=== PATIENT | female | born 1965 | race American Indian/Alaskan Native ===

== ENCOUNTER 2017-10-15 12:24 | Emergency (ER) | payer SELFPAY ==
[2017-10-15] MEDS ORDERED: NORCO 5/325 PO ONE (14:43)
[2017-10-15] MEDS ORDERED: APRESOLINE IV ONE (14:46)
--- NOTE | 2017-10-15 14:55 | Emergency Department Report ---
HPI - General Chief Complaint: Fall Time Seen by Provider: 10/15/17 14:30 - HPI HPI: 52-year-old female presents to the emergency department with complaint of right knee pain, right shoulder pain, low back and neck pain. The patient says that she had a ground-level fall at work at the end of August and she went to a Worker's Compensation clinic the next day for knee pain at that time. She says that she has been getting some physical therapy but otherwise did not have any visit to an orthopedist. She also says that she is supposed to get set up for an MRI of the knee but that has not happened yet. More recently , she developed the shoulder, low back, and neck pain. She denies any problems with bowel or bladder, numbness or paresthesias or any neurological deficits. She has tried ibuprofen for her symptoms with transient relief. She says that it is difficult for her to an delayed secondary to the knee pain. She has a history of hypertension and does present with very elevated blood pressure despite taking her blood pressure medications morning. She is unsure what the medication is oral dose of it is. She follows with Dr. Garth Villar for primary care. ED Past Medical Hx - Past Medical History Hx Hypertension: Yes Hx Asthma: Yes Additional medical history: anemia - Surgical History Additional Surgical History: x 3 - Social History Smoking Status: Never Smoker Substance Use Type: None - Medications Home Medications: Home Medications Medication Instructions Recorded Confirmed Last Taken Type HYDROcodone/APAP 7.5-325 [[place] 1 each PO Q8HR PRN #10 tablet 05/03/16 Unknown Rx 7.5-325 mg TAB] Hydrochlorothiazide [HCTZ] 25 mg PO QDAY #30 tablet 05/03/16 Unknown Rx HYDROcodone/ACETAMINOPHEN [[place] 1 each PO Q6H PRN #10 tablet 10/15/17 Unknown Rx 5-325 Tablet] ED Review of Systems ROS: Stated complaint: FALL Other details as noted in HPI Comment: All other systems reviewed and negative Constitutional: denies: chills, fever Eyes: denies: eye pain, eye discharge, vision change ENT: denies: ear pain, throat pain Respiratory: denies: cough, shortness of breath, wheezing Cardiovascular: denies: chest pain, palpitations Gastrointestinal: denies: abdominal pain, nausea, diarrhea Genitourinary: denies: urgency, dysuria, discharge Musculoskeletal: back pain, arthralgia Skin: denies: rash, lesions Neurological: denies: headache, numbness, paresthesias Physical Exam - Physical Exam Vital Signs: Vital Signs 10/15/17 10/15/17 12:25 12:29 Temperature 98.5 F Pulse Rate 98 H Respiratory 15 Rate Blood Pressure 216/105 O2 Sat by Pulse 95 Oximetry ED Course Vital Signs 10/15/17 10/15/17 12:25 12:29 Temperature 98.5 F Pulse Rate 98 H Respiratory 15 Rate Blood Pressure 216/105 O2 Sat by Pulse 95 Oximetry Critical care attestation.: If time is entered above; I have spent that time in minutes in the direct care of this critically ill patient, excluding procedure time. ED Disposition Clinical Impression: Neck pain, Asymptomatic hypertensive urgency Knee pain Qualifiers: Chronicity: chronic Laterality: right Qualified Code(s): M25.561 - Pain in right knee; G89.29 - Other chronic pain Right shoulder pain Qualifiers: Chronicity: chronic Qualified Code(s): M25.511 - Pain in right shoulder; G89.29 - Other chronic pain Low back pain Qualifiers: Chronicity: chronic Back pain laterality: bilateral Sciatica presence: without sciatica Qualified Code(s): M54.5 - Low back pain; G89.29 - Other chronic pain Disposition: -01 TO HOME OR SELFCARE Is pt being admited?: No Condition: Stable Instructions: Hypertension (ED), Arthralgia (ED), Back Pain (ED) Additional Instructions: Please follow up with Dr. Villar regarding your elevated blood pressure. Try and stay away from foods that are high in salt and caffeinated products. Keep a blood pressure log. I am sure you will need to continue following up with your Worker's Compensation physicians. However I have given you a referral for a large local orthopedic group in case you need further evaluation. You have been prescribed a medication that is sedating and therefore should not be taken prior to driving, working, and responsible for children and in no way should be mixed with alcohol of any quantity. Prescriptions: HYDROcodone/ACETAMINOPHEN [[place] 5-325 Tablet] 1 each PO Q6H PRN #10 tablet PRN Reason: Pain Referrals: GARTH VILLAR MD [Primary Care Provider] - 3-5 Days [facility] [Provider Group] - 3-5 Days Forms: Work/School Release Form(ED) Time of Disposition: 17:29
--- NOTE | 2017-10-15 15:43 | XRay Report ---
LUMBOSACRAL SPINE, 3 VIEWS: History: Back pain Findings: The vertebral bodies, disk spaces and posterior elements are intact. No compression deformity or malalignment. Moderate multilevel degenerative disc disease and facet arthropathy is identified. All levels are affected. The SI joints are symmetric and unremarkable. Impression: Lumbar spondylosis. No evidence for acute injury to the lumbar spine.
--- NOTE | 2017-10-15 15:43 | XRay Report ---
RIGHT KNEE, 3 views: History: Right knee pain. Normal bone mineralization. A moderate joint effusion is identified on the lateral image. Mild medial compartment joint space narrowing and mild retropatellar spurring is identified. There is suggestion of an osteochondral defect on the posterior surface of the patella on the lateral view. No evidence for fracture or suspicious bone lesion. Patellar enthesophyte is noted. IMPRESSION: Degenerative changes as described. Joint effusion.
--- NOTE | 2017-10-15 15:44 | XRay Report ---
CERVICAL SPINE, 3 views: History: Neck pain. Findings: The vertebral bodies, disk spaces, posterior elements and prevertebral soft tissues are intact. The dens is intact. No acute fracture or malalignment is identified. Mild anterior spurring is present at C4-5, C5-6 and C6-7. Arytenoid cartilage calcifications are noted. Impression: Mild cervical spondylosis. No evidence for acute injury to the cervical spine.
--- NOTE | 2017-10-15 15:44 | XRay Report ---
RIGHT SHOULDER, 3 VIEWS: HISTORY: right shoulder pain. Normal bone mineralization. No acute osseous injury or joint pathology is detected. The soft tissues are unremarkable. IMPRESSION: Right shoulder within normal limits.
[2017-10-15 17:29] VITALS: BP 174/78
--- NOTE | 2017-10-16 15:43 | Vascular Lab Report ---
Right Lower Extremity Venous Duplex Study: Reason for Exam: Pain and swelling of the right lower extremity. Comments on the Right: All veins visualized are freely compressible without evidence of internal echogenicity. Flow is spontaneous and phasic throughout. No evidence of acute or chronic thrombus is seen in any of the vessels visualized. A soft tissue change in the right knee area is consistent with a Pope's cyst. Comments on the Left: A limited duplex study was done of the proximal veins of the left lower extremity. All veins visualized are freely compressible without evidence of internal echogenicity. Flow is spontaneous and phasic throughout. No evidence of acute or chronic thrombus is seen in any of the vessels visualized. Impression: No evidence of acute or chronic deep venous thrombosis in the right lower extremity. A soft tissue change in the right knee area is consistent with a Pope's cyst.
== END 2017-10-15 18:22 | disposition home or self-care (01) ==
LOC: ED 12:24
DX: M25.561 Pain in right knee (principal); M25.511 Pain in right shoulder; M54.5 Low back pain; M54.2 Cervicalgia; I16.0 Hypertensive urgency; I10 Essential (primary) hypertension; J45.909 Unspecified asthma, uncomplicated; Z86.2 Personal history of diseases of the blood and blood-forming organs and certain disorders involving the immune mechanism; W18.30XA Fall on same level, unspecified, initial encounter; Y93.89 Activity, other specified; Y99.0 Civilian activity done for income or pay; Y92.69 Other specified industrial and construction area as the place of occurrence of the external cause
CPT/HCPCS: 29505; 72040; 72100; 73030; 73562; 93971; 96374; 99284; J0360

== ENCOUNTER 2020-10-20 14:17 | Emergency (ER) | payer SELFPAY ==
[2020-10-20] MEDS ORDERED: dexAMETHasone 20 MG/5 ML VIAL IV ONE (15:06)
[2020-10-20] MEDS ORDERED: ALBUTEROL 2.5 MG/3 ML NEBU IH ONE (15:06)
[2020-10-20] MEDS ORDERED: IPRATROPIUM 0.02% NEBU 2.5 ML IH ONE (15:06)
--- NOTE | 2020-10-20 16:11 | Emergency Department Report ---
ED Asthma HPI - General Chief Complaint: Adult Asthma Stated Complaint: ASTHMA,WHEEZING Time Seen by Provider: 10/20/20 15:02 Source: patient Mode of arrival: Ambulatory Limitations: No Limitations - History of Present Illness Initial Comments: This is a 55-year-old female nontoxic, well nourished in appearance, no acute signs of distress presents to the ED with c/o of acute on chronic asthma exacerbation. Patient denies any cough. Patient denies any sick contact. Patient denies any recent travels, long car, recent hospital stays. Patient denies any calf pain or calf tenderness. Patient denies any chest pain, short of breath, fever, chills, nausea, vomiting, hemoptysis, numbness, tingling, headache or stiff neck. Past medical history includes asthma. MD Complaint: "asthma attack", wheezing -: This morning Severity: mild Context: none known Associated Symptoms: none. denies: productive cough, dry cough, fever, chest pain, hemoptysis, leg edema, syncope Treatments Prior to Arrival: inhaled bronchodilator - Related Data Current Asthma Therapy: inhaled bronchodilator Previous Rx's Medication Instructions Recorded Last Taken Type HYDROcodone/APAP 7.5-325 [[place] 1 each PO Q8HR PRN #10 tablet 05/03/16 Unknown Rx 7.5-325 mg TAB] hydroCHLOROthiazide [HCTZ] 25 mg PO QDAY #30 tablet 05/03/16 Unknown Rx HYDROcodone/ACETAMINOPHEN [[place] 1 each PO Q6H PRN #10 tablet 10/15/17 Unknown Rx 5-325 Tablet] Albuterol Mdi (or & Nicu Only) 2 puff IH QID PRN #8.5 gram 10/20/20 Unknown Rx [ProAir HFA Inhaler] Prednisone [predniSONE 10 mg 10 mg PO .TAPER #1 tab.ds.pk 10/20/20 Unknown Rx (6-Day Pack, 21 Tabs)] Allergies Allergy/AdvReac Type Severity Reaction Status Date / Time No Known Allergies Allergy Verified 05/03/16 20:56 ED Review of Systems ROS: Stated complaint: ASTHMA,WHEEZING Other details as noted in HPI Comment: All other systems reviewed and negative Constitutional: denies: chills, fever Eyes: denies: eye pain, eye discharge, vision change ENT: denies: ear pain, throat pain Respiratory: wheezing. denies: cough, shortness of breath Cardiovascular: denies: chest pain, palpitations Endocrine: no symptoms reported Gastrointestinal: denies: abdominal pain, nausea, diarrhea Genitourinary: denies: urgency, dysuria, discharge Musculoskeletal: denies: back pain, joint swelling, arthralgia Skin: denies: rash, lesions Neurological: denies: headache, weakness, paresthesias Psychiatric: denies: anxiety, depression Hematological/Lymphatic: denies: easy bleeding, easy bruising ED Past Medical Hx - Past Medical History Previous Medical History?: Yes Hx Hypertension: Yes Hx Asthma: Yes Additional medical history: anemia - Surgical History Past Surgical History?: Yes Additional Surgical History: x 3 - Social History Smoking Status: Never Smoker Substance Use Type: None - Medications Home Medications: Home Medications Medication Instructions Recorded Confirmed Last Taken Type HYDROcodone/APAP 7.5-325 [[place] 1 each PO Q8HR PRN #10 tablet 05/03/16 Unknown Rx 7.5-325 mg TAB] hydroCHLOROthiazide [HCTZ] 25 mg PO QDAY #30 tablet 05/03/16 Unknown Rx HYDROcodone/ACETAMINOPHEN [[place] 1 each PO Q6H PRN #10 tablet 10/15/17 Unknown Rx 5-325 Tablet] Albuterol Mdi (or & Nicu Only) 2 puff IH QID PRN #8.5 gram 10/20/20 Unknown Rx [ProAir HFA Inhaler] Prednisone [predniSONE 10 mg 10 mg PO .TAPER #1 tab.ds.pk 10/20/20 Unknown Rx (6-Day Pack, 21 Tabs)] ED Physical Exam - General Limitations: No Limitations General appearance: alert, in no apparent distress - Head Head exam: Present: atraumatic, normocephalic - Eye Eye exam: Present: normal appearance - Neck Neck exam: Present: normal inspection, full ROM - Respiratory Respiratory exam: Present: wheezes (Bilateral expiratory wheezing). Absent: respiratory distress, rales, rhonchi, stridor, chest wall tenderness, accessory muscle use, decreased breath sounds, prolonged expiratory - Cardiovascular Cardiovascular Exam: Present: regular rate, normal rhythm, normal heart sounds. Absent: bradycardia, tachycardia, irregular rhythm - Extremities Exam Extremities exam: Present: full ROM - Back Exam Back exam: Present: full ROM - Neurological Exam Neurological exam: Present: alert, oriented X3, normal gait - Psychiatric Psychiatric exam: Present: normal affect, normal mood - Skin Skin exam: Present: warm, dry, intact, normal color. Absent: rash ED Course Vital Signs 10/20/20 10/20/20 15:03 16:49 Temperature 98.3 F Pulse Rate 97 H Pulse Rate [ 96 H Anterior Bilateral Throughout] Respiratory 16 Rate Respiratory 18 Rate [Anterior Bilateral Throughout] Blood Pressure 193/95 O2 Sat by Pulse 95 Oximetry - Reevaluation(s) Reevaluation #1: 10/20/20 16:09 Patient is speaking in full sentences with no signs of distress noted. ED Medical Decision Making - Medical Decision Making This is a 55-year-old female that presents with asthma exacerbation. Patient is stable and was examined by me. Patient did receive breathing treatment and steroids in the ED which patient the symptoms has resolved and subsided. Posttreatment and there is no wheezing upon auscultation. Patient is discharged with albuterol and prednisone. Patient was referred to Follow-up with a primary care doctor in 3-5 days or if symptoms worsen and continue return to emergency room as soon as possible. At time of discharge, the patient does not seem toxic or ill in appearance. No acute signs of distress noted. Patient agrees to discharge treatment plan of care. No further questions noted by the patient. This chart is dictated with using [employer] Critical care attestation.: If time is entered above; I have spent that time in minutes in the direct care of this critically ill patient, excluding procedure time. ED Disposition Clinical Impression: Asthma exacerbation Qualifiers: Asthma severity: mild Asthma persistence: intermittent Qualified Code(s): J45.21 - Mild intermittent asthma with (acute) exacerbation Disposition: -01 TO HOME OR SELFCARE Is pt being admited?: No Does the pt Need Aspirin: No Condition: Stable Instructions: Asthma, Adult Additional Instructions: Follow-up with a primary care doctor in 3-5 days or if symptoms worsen and cont inue return to emergency room as soon as possible. Prescriptions: Prednisone [predniSONE 10 mg (6-Day Pack, 21 Tabs)] 10 mg PO .TAPER #1 tab.ds.pk Albuterol Mdi (or & Nicu Only) [ProAir HFA Inhaler] 2 puff IH QID PRN #8.5 gram PRN Reason: Shortness Of Breath Referrals: LUCERO WILSON MD [Primary Care Provider] - 3-5 Days PRIMARY CARE,MD [Referring] - 3-5 Days SANDRA STERLING MD [Staff Physician] - 3-5 Days Forms: Work/School Release Form(ED) Time of Disposition: 18:13
[2020-10-20 18:34] VITALS: BP 180/100
== END 2020-10-20 18:34 | disposition home or self-care (01) ==
LOC: ED 14:17
DX: J45.901 Unspecified asthma with (acute) exacerbation (principal); I10 Essential (primary) hypertension; D64.9 Anemia, unspecified; Z98.890 Other specified postprocedural states; Z79.899 Other long term (current) drug therapy
CPT/HCPCS: 94644; 96374; 99283; J1100

== ENCOUNTER 2021-01-29 10:06 | Outpatient (CLI) | payer OTHER ==
[2021-01-29 10:43] LABS: Basophils # (Auto) 0.1 K/mm3 (0.0-0.1); Eosinophils # (Auto) 0.3 K/mm3 (0.0-0.4); Eosinophils % (Auto) 3.5 % (0.0-4.3); Hematocrit 37.5 % (30.3-42.9); Hemoglobin 11.6 gm/dl (10.1-14.3); Lymphocytes # (Auto) 2.2 K/mm3 (1.2-5.4); Lymphocytes % (Auto) 26.1 % (13.4-35.0); Mean Corpuscular HGB Conc 31 % (30-34); Mean Corpuscular Volume 88 fl (79-97); Monocytes # (Auto) 0.6 K/mm3 (0.0-0.8); Monocytes % (Auto) 6.9 % (0.0-7.3); Platelet Count 303 K/mm3 (140-440); Red Blood Count 4.27 M/mm3 (3.65-5.03)
[2021-01-29 11:00] LABS: Alanine Aminotransferase 13 units/L (7-56); Albumin 4.2 g/dL (3.9-5); Blood Urea Nitrogen 10 mg/dL (7-17); Calcium 9.4 mg/dL (8.4-10.2); Chol/HDL Ratio 3.08 %; HDL Cholesterol 60 mg/dL (40-59); Hemolysis Index 0; LDL Cholesterol,Direct 131 mg/dL (50-130)
[2021-01-29 11:01] LABS: BUN/Creatinine Ratio 20
[2021-01-29 12:37] LABS: ABG HCO3 25.9 mmol/L (20.0-26.0); ABG Methemoglobin 0.3 % (0.0-1.5); ABG Oxygen Saturation 96.3 % (95.0-99.0); ABG PCO2 42.6 mm Hg; ABG PH 7.412 pH Units (7.350-7.450)
--- NOTE | 2021-01-29 12:37 | Cat Scan Report ---
CT CHEST WITH CONTRAST INDICATION / CLINICAL INFORMATION: UNSPECIFIED ASTHMA, [id number] 100ml. TECHNIQUE: Axial CT images were obtained through the chest after IV contrast. All CT scans at this location are performed using CT dose reduction for ALARA by means of automated exposure control. COMPARISON: None available. FINDINGS: Atherosclerotic changes of aorta. No large pericardial effusion. The liver is enlarged with fatty inf iltration. Visualized upper abdomen appears normal. No mediastinal or hilar adenopathy. Mild increase d interstitial prominence within the right lower lung with some interstitial nodularity. There is some mild rounded prominence in density surrounding the right lower lung pulmonary vein. On coronal images this area measures 1.5 cm. IMPRESSION: 1. Increased interstitial prominence with some interstitial nodularity and right lower lung. Small ro unded density adjacent to the right ovary vein could represent normal variant with fat however a foll ow-up CT examination for right lower lung interstitial nodularity and density in 3 months recommended . 2. Fatty infiltration of the liver. Signer Name: Chava La MD Signed: 01/29/2021 12:33 PM Workstation Name: [id number]
== END 2021-01-29 10:07 | disposition home or self-care (01) ==
LOC: CT 10:06
PROVIDERS: ATTEND Internal Medicine
DX: R91.1 Solitary pulmonary nodule (principal); J45.909 Unspecified asthma, uncomplicated; K76.0 Fatty (change of) liver, not elsewhere classified; I10 Essential (primary) hypertension; R91.8 Other nonspecific abnormal finding of lung field; J84.10 Pulmonary fibrosis, unspecified; I70.0 Atherosclerosis of aorta; Z68.42 Body mass index [BMI] 45.0-49.9, adult
CPT/HCPCS: 36415; 71260; 80053; 80061; 82164; 82785; 82803; 84436; 84443; 85025; Q9967

== ENCOUNTER 2021-12-31 13:22 | Inpatient (IN) | payer OTHER ==
[2021-12-31] MEDS ORDERED: IPRATROPIUM 0.02% NEBU 2.5 ML IH STA (14:03)
[2021-12-31] MEDS ORDERED: methylPREDNISolone Sod Succinate 125 MG/2 ML INJ IV ONE (14:03)
[2021-12-31] MEDS ORDERED: ALBUTEROL 2.5 MG/3 ML NEBU IH STA (14:03)
[2021-12-31 14:26] LABS: Basophils # (Auto) 0.1 K/mm3 (0.0-0.1); Basophils % (Auto) 0.9 % (0.0-1.8); Eosinophils # (Auto) 0.3 K/mm3 (0.0-0.4); Eosinophils % (Auto) 3.3 % (0.0-4.3); Lymphocytes # (Auto) 0.8 K/mm3 (1.2-5.4); Lymphocytes % (Auto) 8.9 % (13.4-35.0); Mean Corpuscular HGB Conc 31 % (30-34); Mean Corpuscular Volume 86 fl (79-97); Monocytes # (Auto) 0.7 K/mm3 (0.0-0.8); Platelet Count 257 K/mm3 (140-440); Red Cell Distribution Width 16.3 % (13.2-15.2)
[2021-12-31 14:33] LABS: Hematocrit 42.1 % (30.3-42.9); Hemoglobin 12.9 gm/dl (10.1-14.3)
--- NOTE | 2021-12-31 14:37 | XRay Report ---
CHEST 1 VIEW INDICATION: SOB. COMPARISON: None FINDINGS: Support devices: None. Heart: Mild cardiomegaly Lungs/Pleura: Mild central pulmonary venous congestion. No evidence for infiltrate, pleural effusion or pneumothorax. Additional findings: None. IMPRESSION: Mild cardiomegaly and central pulmonary venous congestion but no evidence for CHF. Signer Name: Chris Mcconnell Jr, MD Signed: 12/31/2021 2:32 PM Workstation Name: [id number]
[2021-12-31 14:51] LABS: Alanine Aminotransferase 15 units/L (7-56); Albumin 3.9 g/dL (3.9-5); Blood Urea Nitrogen 10 mg/dL (7-17); Calcium 9.5 mg/dL (8.4-10.2); Hemolysis Index 34
[2021-12-31 14:59] LABS: BUN/Creatinine Ratio 17
[2021-12-31 15:17] LABS: ABG Base Excess 4.9 mmol/L (-2.0-3.0); ABG HCO3 32.8 mmol/L (20.0-26.0); ABG Methemoglobin 0.5 % (0.0-1.5); ABG Oxygen Saturation 95.2 % (95.0-99.0); ABG PCO2 63.7 mm Hg; ABG PH 7.33 pH Units (7.350-7.450); ABG PO2 78.1 mm Hg (80.0-90.0)
--- NOTE | 2021-12-31 17:46 | Emergency Department Report ---
ED General Adult HPI - General Chief complaint: Dyspnea/Respdistress Stated complaint: WHEEZING Time Seen by Provider: 12/31/21 13:50 Source: patient Mode of arrival: Ambulatory Limitations: No Limitations - History of Present Illness Initial comments: Patient presents with complaints of SOB @ rest and on exertion. Denies PND, orthopnea, chest pain, palpitations, diaphoresis, leg swelling, pain in his/her calves, recent travel, immobilization, surgery, hospitalization, sex HRT use. POx in 70s on RA. - Related Data Previous Rx's Medication Instructions Recorded Last Taken Type HYDROcodone/APAP 7.5-325 [[place] 1 each PO Q8HR PRN #10 tablet 05/03/16 Unknown Rx 7.5-325 mg TAB] hydroCHLOROthiazide [HCTZ] 25 mg PO QDAY #30 tablet 05/03/16 Unknown Rx HYDROcodone/ACETAMINOPHEN [[place] 1 each PO Q6H PRN #10 tablet 10/15/17 Unknown Rx 5-325 Tablet] Albuterol Mdi (or & Nicu Only) 2 puff IH QID PRN #8.5 gram 10/20/20 Unknown Rx [ProAir HFA Inhaler] Prednisone [predniSONE 10 mg 10 mg PO .TAPER #1 tab.ds.pk 10/20/20 Unknown Rx (6-Day Pack, 21 Tabs)] Allergies Allergy/AdvReac Type Severity Reaction Status Date / Time No Known Allergies Allergy Verified 05/03/16 20:56 ED Review of Systems ROS: Stated complaint: WHEEZING Other details as noted in HPI Comment: All other systems reviewed and negative Constitutional: denies: chills, fever ED Past Medical Hx - Past Medical History Hx Hypertension: Yes Hx Asthma: Yes Additional medical history: anemia - Surgical History Additional Surgical History: x 3 - Social History Smoking Status: Never Smoker Substance Use Type: None - Medications Home Medications: Home Medications Medication Instructions Recorded Confirmed Last Taken Type HYDROcodone/APAP 7.5-325 [[place] 1 each PO Q8HR PRN #10 tablet 05/03/16 Unknown Rx 7.5-325 mg TAB] hydroCHLOROthiazide [HCTZ] 25 mg PO QDAY #30 tablet 05/03/16 Unknown Rx HYDROcodone/ACETAMINOPHEN [[place] 1 each PO Q6H PRN #10 tablet 10/15/17 Unknown Rx 5-325 Tablet] Albuterol Mdi (or & [place]u Only) 2 puff IH QID PRN #8.5 gram 10/20/20 Unknown Rx [ProAir HFA Inhaler] Prednisone [predniSONE 10 mg 10 mg PO .TAPER #1 tab.ds.pk 10/20/20 Unknown Rx (6-Day Pack, 21 Tabs)] ED Physical Exam - General Limitations: No Limitations General appearance: alert, other (in moderate respiratory distress) - Head Head exam: Present: atraumatic, normocephalic - Eye Eye exam: Present: PERRL, EOMI - ENT ENT exam: Present: mucous membranes moist, other (airway patent) - Neck Neck exam: Present: other (supple; no JVD) - Respiratory Respiratory exam: Present: other (poor to femi air entry, prolonged expiratory phase, diffuse inspiratory and expiratory wheezes, no use of MILLA) - Cardiovascular Cardiovascular Exam: Present: regular rate. Absent: rubs, gallop - GI/Abdominal GI/Abdominal exam: Present: soft, normal bowel sounds. Absent: distended, tenderness - Extremities Exam Extremities exam: Present: other (trace pretibial edema, R=L; non tender calves; neg Lenin's sign bilaterally) - Back Exam Back exam: Present: full ROM. Absent: tenderness - Neurological Exam Neurological exam: Present: alert, oriented X3, CN II-XII intact - Skin Skin exam: Present: warm, normal color ED Course Vital Signs 12/31/21 12/31/21 12/31/21 13:29 13:42 15:27 Temperature 98.7 F Pulse Rate 116 H 119 H Pulse Rate [ 118 H Bilateral] Respiratory 24 Rate Respiratory 20 Rate [Bilateral ] Blood Pressure 198/106 [Right] O2 Sat by Pulse 85 92 Oximetry ED Medical Decision Making - Lab Data Result diagrams: 12/31/21 14:14 12/31/21 14:14 Laboratory Tests 12/31/21 12/31/21 12/31/21 14:14 14:14 14:39 WBC 9.1 RBC 4.90 Hgb 12.9 Hct 42.1 MCV 86 MCH 26 L MCHC 31 RDW 16.3 H Plt Count 257 Lymph % (Auto) 8.9 L [place] % (Auto) 8.0 H Eos % (Auto) 3.3 Baso % (Auto) 0.9 Lymph # (Auto) 0.8 L [place] # (Auto) 0.7 Eos # (Auto) 0.3 Baso # (Auto) 0.1 Seg Neutrophils % 78.9 H Seg Neutrophils # 7.2 ABG pH 7.330 L ABG pCO2 63.7 ABG pO2 78.1 L ABG HCO3 32.8 H ABG O2 Saturation 95.2 ABG O2 Content 18.1 ABG Base Excess 4.9 H ABG Hemoglobin 13.9 ABG Carboxyhemoglobin 1.8 ABG Methemoglobin 0.5 Oxyhemoglobin 93.0 L FiO2 45 Sodium 139 Potassium 4.4 Chloride 96.9 L Carbon Dioxide 30 Anion Gap 17 BUN 10 Creatinine 0.6 Estimated GFR > 60 BUN/Creatinine Ratio 17 Glucose 114 H Calcium 9.5 Total Bilirubin 0.80 AST 14 ALT 15 Alkaline Phosphatase 135 H Troponin T < 0.010 NT-Pro-B Natriuret Pep 79.88 Total Protein 7.7 Albumin 3.9 Albumin/Globulin Ratio 1.0 CXR: pulmonary vascular congestion; clear lung lassiter EKG: HR 114, SR, nml NV, narrow QRS, LVH by R in I, no siginificant ST changes in contiguous leads - Medical Decision Making Diff dz: Likely 2/2 asthma exacerbation superimposed on hypertensive urgency with pulmonary vascular congestion. Pneumonia, pneumothorax ruled out. ACS, PE less likely. received solumedrol 125 mg IV x 1, albuterol 10 mg neb x 1, ipratropium 1 mg neb x 1, hydralazine 10 mg IV x 1, O2 via NC @ 4L/min. Critical care attestation.: If time is entered above; I have spent that time in minutes in the direct care of this critically ill patient, excluding procedure time. ED Disposition Clinical Impression: Asthma exacerbation, Acute respiratory failure with hypoxia Disposition: ADMITTED INPATIENT Is pt being admited?: Yes Does the pt Need Aspirin: No Condition: Stable Time of Disposition: 17:30 (Patient admitted to Dr. Jackson. Sign out was given by me to the admitting physician. )
[2021-12-31] MEDS ORDERED: hydrALAZINE 20 MG/1 ML INJ IV ONE (17:47)
--- NOTE | 2021-12-31 22:18 | History and Physical Report ---
History of Present Illness Date of examination: 12/31/21 Date of admission: 12/31/2021 Chief complaint: Severe shortness of breath and wheezing for 1 day History of present illness: 56-year-old female with a history of asthma and hyper tension comes in for severe wheezing shortness of breath for the last 24 hours. Patient uses her home nebulizer treatments but with no relief. In the emergency room patient was saturating around 86%. With 3 to 5 L of nasal cannula oxygen patient's saturations improved to 95%. Patient received nebulizer treatments. No fever or chills. During my examination patient states that she has some relief and wanted to go home. Patient's wheezing was less compared to the time of admission. When the oxygen was removed she desaturated again to 86%. Patient had to be convinced to stay in the hospital for more breathing treatments steroids and antibiotics. Son was at the bedside. - Past Medical History --Hypertension: Yes --Asthma: Yes Additional medical history: anemia - Surgical History Additional Surgical History: x 3 - Social History Smoking Status: Never Smoker Substance Use Type: None - Medications Home Medications: Home Medications Medication Instructions Recorded Confirmed Last Taken Type HYDROcodone/APAP 7.5-325 [[place] 1 each PO Q8HR PRN #10 tablet 05/03/16 Unknown Rx 7.5-325 mg TAB] hydroCHLOROthiazide [HCTZ] 25 mg PO QDAY #30 tablet 05/03/16 Unknown Rx HYDROcodone/ACETAMINOPHEN [[place] 1 each PO Q6H PRN #10 tablet 10/15/17 Unknown Rx 5-325 Tablet] Albuterol Mdi (or & Nicu Only) 2 puff IH QID PRN #8.5 gram 10/20/20 Unknown Rx [ProAir HFA Inhaler] Prednisone [predniSONE 10 mg 10 mg PO .TAPER #1 tab.ds.pk 10/20/20 Unknown Rx (6-Day Pack, 21 Tabs)] Review of Systems ROS: Constitutional no weight loss or weight gain no fever or chills HEENT no sore throat no post nasal drip no diplopia Neck no neck stiffness no lymph gland enlargement Chest and lungs severe wheezing and shortness of breath CVS no chest pain no diaphoresis no palpitations GI no nausea no vomiting no diarrhea Genitourinary system no dysuria no flank pain Musculoskeletal system no muscle pains no joint pains [employer] no syncope no seizures Skin no rash no itching Psychiatric no depression no homicidal or suicidal tendencies Hematologic no lymphedema or bruising Endocrine no polydipsia no polyuria no cold intolerance no heat intolerance Medications and Allergies Allergies Allergy/AdvReac Type Severity Reaction Status Date / Time No Known Allergies Allergy Verified 05/03/16 20:56 Home Medications Medication Instructions Recorded Confirmed Last Taken Type HYDROcodone/APAP 7.5-325 [[place] 1 each PO Q8HR PRN #10 tablet 05/03/16 Unknown Rx 7.5-325 mg TAB] hydroCHLOROthiazide [HCTZ] 25 mg PO QDAY #30 tablet 05/03/16 Unknown Rx HYDROcodone/ACETAMINOPHEN [[place] 1 each PO Q6H PRN #10 tablet 10/15/17 Unknown Rx 5-325 Tablet] Albuterol Mdi (or & Nicu Only) 2 puff IH QID PRN #8.5 gram 10/20/20 Unknown Rx [ProAir HFA Inhaler] Prednisone [predniSONE 10 mg 10 mg PO .TAPER #1 tab.ds.pk 10/20/20 Unknown Rx (6-Day Pack, 21 Tabs)] Exam - Constitutional Vitals: Temp Pulse Resp BP Pulse Ox 98.7 F 104 H 20 190/93 92 12/31/21 13:29 12/31/21 20:41 12/31/21 20:41 12/31/21 20:41 12/31/21 20:41 General appearance: Present: severe distress, well-nourished - EENT Eyes: Present: PERRL ENT: hearing intact, clear oral mucosa - Neck Neck: Present: supple, normal ROM - Respiratory Respiratory effort: normal Respiratory: left: diminished, rhonchi, wheezing, bilateral: CTA - Cardiovascular Heart rate: 78 Rhythm: regular Heart Sounds: Present: S1 & S2. Absent: rub, click - Extremities Extremities: pulses symmetrical, No edema Peripheral Pulses: within normal limits - Abdominal General gastrointestinal: Present: soft, non-tender, non-distended, normal bowel sounds Female genitourinary: Present: normal - Integumentary Integumentary: Present: clear, warm, dry - Musculoskeletal Musculoskeletal: gait normal, strength equal bilaterally - Psychiatric Psychiatric: appropriate mood/affect, intact judgment & insight - Neurologic Neurologic: CNII-XII intact, moves all extremities HEART Score - HEART Score Troponin: Troponin T < 0.010 ng/mL (0.00-0.029) 12/31/21 14:14 Results - Labs CBC & Chem 7: 01/01/22 05:35 01/01/22 05:35 Labs: Laboratory Last Values WBC 9.1 K/mm3 (4.5-11.0) 12/31/21 14:14 RBC 4.90 M/mm3 (3.65-5.03) 12/31/21 14:14 Hgb 12.9 gm/dl (10.1-14.3) 12/31/21 14:14 Hct 42.1 % (30.3-42.9) 12/31/21 14:14 MCV 86 fl (79-97) 12/31/21 14:14 MCH 26 pg (28-32) L 12/31/21 14:14 MCHC 31 % (30-34) 12/31/21 14:14 RDW 16.3 % (13.2-15.2) H 12/31/21 14:14 Plt Count 257 K/mm3 (140-440) 12/31/21 14:14 Lymph % (Auto) 8.9 % (13.4-35.0) L 12/31/21 14:14 [place] % (Auto) 8.0 % (0.0-7.3) H 12/31/21 14:14 Eos % (Auto) 3.3 % (0.0-4.3) 12/31/21 14:14 Baso % (Auto) 0.9 % (0.0-1.8) 12/31/21 14:14 Lymph # (Auto) 0.8 K/mm3 (1.2-5.4) L 12/31/21 14:14 [place] # (Auto) 0.7 K/mm3 (0.0-0.8) 12/31/21 14:14 Eos # (Auto) 0.3 K/mm3 (0.0-0.4) 12/31/21 14:14 Baso # (Auto) 0.1 K/mm3 (0.0-0.1) 12/31/21 14:14 Seg Neutrophils % 78.9 % (40.0-70.0) H 12/31/21 14:14 Seg Neutrophils # 7.2 K/mm3 (1.8-7.7) 12/31/21 14:14 ABG pH 7.330 pH Units (7.350-7.450) L 12/31/21 14:39 ABG pCO2 63.7 mm Hg 12/31/21 14:39 ABG pO2 78.1 mm Hg (80.0-90.0) L 12/31/21 14:39 ABG HCO3 32.8 mmol/L (20.0-26.0) H 12/31/21 14:39 ABG O2 Saturation 95.2 % (95.0-99.0) 12/31/21 14:39 ABG O2 Content 18.1 (0.0-44) 12/31/21 14:39 ABG Base Excess 4.9 mmol/L (-2.0-3.0) H 12/31/21 14:39 ABG Hemoglobin 13.9 gm/dl (12.0-16.0) 12/31/21 14:39 ABG Carboxyhemoglobin 1.8 % (0.0-5.0) 12/31/21 14:39 ABG Methemoglobin 0.5 % (0.0-1.5) 12/31/21 14:39 Oxyhemoglobin 93.0 % (95.0-99.0) L 12/31/21 14:39 FiO2 45 % 12/31/21 14:39 Sodium 139 mmol/L (137-145) 12/31/21 14:14 Potassium 4.4 mmol/L (3.6-5.0) 12/31/21 14:14 Chloride 96.9 mmol/L (98-107) L 12/31/21 14:14 Carbon Dioxide 30 mmol/L (22-30) 12/31/21 14:14 Anion Gap 17 mmol/L 12/31/21 14:14 BUN 10 mg/dL (7-17) 12/31/21 14:14 Creatinine 0.6 mg/dL (0.6-1.2) 12/31/21 14:14 Estimated GFR > 60 ml/min 12/31/21 14:14 BUN/Creatinine Ratio 17 % 12/31/21 14:14 Glucose 114 mg/dL (65-100) H 12/31/21 14:14 Calcium 9.5 mg/dL (8.4-10.2) 12/31/21 14:14 Total Bilirubin 0.80 mg/dL (0.1-1.2) 12/31/21 14:14 AST 14 units/L (5-40) 12/31/21 14:14 ALT 15 units/L (7-56) 12/31/21 14:14 Alkaline Phosphatase 135 units/L (35-129) H 12/31/21 14:14 Troponin T < 0.010 ng/mL (0.00-0.029) 12/31/21 14:14 NT-Pro-B Natriuret Pep 79.88 pg/mL (0-900) 12/31/21 14:14 Total Protein 7.7 g/dL (6.3-8.2) 12/31/21 14:14 Albumin 3.9 g/dL (3.9-5) 12/31/21 14:14 Albumin/Globulin Ratio 1.0 % 12/31/21 14:14 - Imaging and Cardiology Chest x-ray: report reviewed (No acute. No acute findings) Assessment and Plan Advance Directives: Yes (Full code) VTE prophylaxis?: Chemical Plan of care discussed with patient/family: Yes - Patient Problems (1) Acute respiratory failure with hypoxia Current Visit: Yes Status: Acute Plan to address problem: Patient was desaturating to 86% on room air consistently Patient initiated on 5 L nasal cannula oxygen, IV steroids, IV Levaquin and duo nebs [id number] and as needed. Singulair 10 mg p.o. daily was added. (2) Asthma exacerbation Current Visit: Yes Status: Acute Qualifiers: Asthma severity: severe Plan to address problem: Patient initiated on IV steroids, IV Levaquin and nebulizer treatments Patient has nebulizer machine at home but not on home oxygen. Singulair was added to prevent further attacks. (3) Hypertension Current Visit: Yes Status: Chronic Qualifiers: Hypertension type: primary hypertension Qualified Code(s): I10 - Essential (primary) hypertension Plan to address problem: Continue antihypertensives and adjust medications. (4) DVT prophylaxis Current Visit: Yes Status: Acute Plan to address problem: Anticoagulation GI prophylaxis. (5) Advance care planning Current Visit: Yes Status: Acute Plan to address problem: Disease education conducted, care plan discussed, diagnosis discussed, prognosis discussed. Patient is full code. Patient acknowledges understanding and agreement with care plan. +30 minutes.
[2021-12-31] MEDS ORDERED: ALBUTEROL 8.5 GM MDI INHALATION IH PRN (22:19)
[2021-12-31] MEDS ORDERED: HYDROmorphone 0.5 MG/0.5 ML INJ IV PRN (22:19)
[2021-12-31] MEDS ORDERED: IPRATROPIUM/ALBUTEROL SULFATE 3 ML AMPUL.NEB IH PRN (22:22)
[2021-12-31] MEDS ORDERED: METOPROLOL TARTRATE 5 MG/5 ML INJ IV ONE (22:29)
[2021-12-31] MEDS ORDERED: SODIUM CHLORIDE 0.9% 1000 ML 1,000 ML IV SCH (23:00)
[2021-12-31] MEDS ORDERED: ACETAMINOPHEN 325 MG TAB PO PRN (23:30)
[2021-12-31] MEDS ORDERED: oxyCODONE /ACETAMINOPHEN 5-325MG TAB PO PRN (23:30)
[2021-12-31] MEDS ORDERED: METOCLOPRAMIDE 10 MG/2 ML INJ IV PRN (23:30)
[2021-12-31] MEDS ORDERED: ONDANSETRON 4 MG/2 ML INJ IV PRN (23:30)
[2022-01-01] MEDS: methylPREDNISolone Sod Succinate 125 MG/2 ML INJ IV SCH ×4 (00:07→21:28)
[2022-01-01] MEDS ORDERED: ALBUTEROL 2.5 MG/3 ML NEBU IH PRN (02:08)
[2022-01-01] MEDS ORDERED: hydrALAZINE 20 MG/1 ML INJ IV PRN ×2 (02:31→02:44)
[2022-01-01 06:10] LABS: Hematocrit 42.5 % (30.3-42.9); Hemoglobin 13.3 gm/dl (10.1-14.3); Mean Corpuscular HGB Conc 31 % (30-34); Mean Corpuscular Volume 85 fl (79-97); Platelet Count 293 K/mm3 (140-440); Red Blood Count 4.98 M/mm3 (3.65-5.03); Red Cell Distribution Width 16.4 % (13.2-15.2)
[2022-01-01 06:32] LABS: Alanine Aminotransferase 15 units/L (7-56); Albumin 4.3 g/dL (3.9-5); Blood Urea Nitrogen 12 mg/dL (7-17); Calcium 9.8 mg/dL (8.4-10.2); Hemolysis Index 20
[2022-01-01 06:38] LABS: BUN/Creatinine Ratio 20
[2022-01-01 06:57] LABS: Basophils % (Manual) 0 % (0.0-1.8); Eosinophils % (Manual) 0 % (0.0-4.3); Monocytes % (Manual) 0 % (0.0-7.3); Total Cells Counted 100
[2022-01-01 06:58] LABS: Platelet Estimate Consistent w Auto; RBC Morphology Normal
[2022-01-01] MEDS ORDERED: IPRATROPIUM/ALBUTEROL SULFATE 3 ML AMPUL.NEB IH SCH (08:00)
[2022-01-01] MEDS: HEPARIN 5,000 UNIT/1 ML VIAL SUB-Q SCH ×2 (10:05→21:28)
[2022-01-01] MEDS: FAMOTIDINE 20 MG TAB PO SCH ×2 (10:06→21:27)
--- NOTE | 2022-01-01 10:32 | Consultation ---
History of Present Illness Consult date: 01/01/22 Requesting physician: LILIAN PALM Reason for consult: asthma (Acute Exacerbation) History of present illness: PULMONARY/CCM CONSULT NOTE (Full dictation # [id number]) Please see dictated notes for full details Medications and Allergies Allergies Allergy/AdvReac Type Severity Reaction Status Date / Time No Known Allergies Allergy Verified 05/03/16 20:56 Home Medications Medication Instructions Recorded Confirmed Last Taken Type HYDROcodone/APAP 7.5-325 [[place] 1 each PO Q8HR PRN #10 tablet 05/03/16 Unknown Rx 7.5-325 mg TAB] hydroCHLOROthiazide [HCTZ] 25 mg PO QDAY #30 tablet 05/03/16 Unknown Rx HYDROcodone/ACETAMINOPHEN [[place] 1 each PO Q6H PRN #10 tablet 10/15/17 Unknown Rx 5-325 Tablet] Prednisone [predniSONE 10 mg 10 mg PO .TAPER #1 tab.ds.pk 10/20/20 Unknown Rx (6-Day Pack, 21 Tabs)] RX: Albuterol Mdi (or & Nicu Only) 2 puff IH QID PRN #8.5 gram 10/20/20 Unknown Rx [ProAir HFA Inhaler] Active Meds: Active Medications Acetaminophen (Acetaminophen 325 Mg Tab) 650 mg PO Q4H PRN PRN Reason: Pain MILD(1-3)/Fever >100.5/WEBB Albuterol (Albuterol 2.5 Mg/3 Ml Nebu) 2.5 mg IH Q4HRT PRN PRN Reason: Shortness Of Breath Last Admin: 01/01/22 06:01 Dose: 2.5 mg Albuterol/Ipratropium (Ipratropium/Albuterol Sulfate 3 Ml Ampul.Neb) 1 ampul IH QIDRT MARIAH Last Admin: 01/01/22 08:28 Dose: 1 ampul Famotidine (Famotidine 20 Mg Tab) 20 mg PO BID [facility] Last Admin: 01/01/22 10:06 Dose: 20 mg Heparin Sodium (Porcine) (Heparin 5,000 Unit/1 Ml Vial) 5,000 unit SUB-Q Q12HR [facility] Last Admin: 01/01/22 10:05 Dose: 5,000 unit Hydralazine HCl (Hydralazine 20 Mg/1 Ml Inj) 10 mg IV Q6H PRN PRN Reason: Blood Pressure Last Admin: 01/01/22 02:57 Dose: 10 mg Hydromorphone HCl (Hydromorphone 0.5 Mg/0.5 Ml Inj) 0.5 mg IV Q3H PRN PRN Reason: Pain , Severe (7-10) Last Admin: 01/01/22 00:07 Dose: 0.5 mg Sodium Chloride (Nacl 0.9% 1000 Ml) 1,000 mls @ 75 mls/hr IV DIRECT MARIAH Last Admin: 01/01/22 05:26 Dose: 75 mls/hr Levofloxacin/Dextrose (Levaquin 750mg/150ml) 750 mg in 150 mls @ 100 mls/hr IV Q24HR MARIAH; Protocol Stop: 01/05/22 11:29 Last Admin: 01/01/22 10:05 Dose: 100 mls/hr Methylprednisolone Sodium Succinate (Methylprednisolone Sod Succinate 125 Mg/2 Ml Inj) 60 mg IV Q8HR MARIAH Last Admin: 01/01/22 05:25 Dose: 60 mg Metoclopramide HCl (Metoclopramide 10 Mg/2 Ml Inj) 10 mg IV Q6H PRN PRN Reason: Nausea And Vomiting Montelukast Sodium (Montelukast 10 Mg Tab) 10 mg PO QHS MARIAH Ondansetron HCl (Ondansetron 4 Mg/2 Ml Inj) 4 mg IV Q8H PRN PRN Reason: Nausea And Vomiting Last Admin: 01/01/22 00:08 Dose: 4 mg Oxycodone/Acetaminophen (Oxycodone /Acetaminophen 5-325mg Tab) 1 tab PO Q6H PRN PRN Reason: Pain, Moderate (4-6) Sodium Chloride (Sodium Chloride 0.9% 10 Ml Flush Syringe) 10 ml IV BID MARIAH Last Admin: 01/01/22 10:06 Dose: 10 ml Sodium Chloride (Sodium Chloride 0.9% 10 Ml Flush Syringe) 10 ml IV PRN PRN PRN Reason: LINE FLUSH Last Admin: 01/01/22 05:26 Dose: 10 ml Physical Examination Vital signs: Vital Signs Temp Pulse Resp BP Pulse Ox 98.7 F 116 H 24 198/106 85 12/31/21 13:29 12/31/21 13:29 12/31/21 13:29 12/31/21 13:29 12/31/21 13:29 Results - Laboratory Findings CBC and BMP: 01/01/22 05:35 01/01/22 05:35 ABG ABG pH 7.330 pH Units (7.350-7.450) L 12/31/21 14:39 ABG pCO2 63.7 mm Hg 12/31/21 14:39 ABG pO2 78.1 mm Hg (80.0-90.0) L 12/31/21 14:39 ABG O2 Saturation 95.2 % (95.0-99.0) 12/31/21 14:39 Abnormal lab findings: Abnormal Labs 12/31/21 12/31/21 12/31/21 14:14 14:14 14:39 MCH 26 L RDW 16.3 H Lymph % (Auto) 8.9 L [place] % (Auto) 8.0 H Lymph # (Auto) 0.8 L Seg Neutrophils % 78.9 H Seg Neuts % (Manual) Lymphocytes % (Manual) Seg Neutrophils # Man Lymphocytes # (Manual) ABG pH 7.330 L ABG pO2 78.1 L ABG HCO3 32.8 H ABG Base Excess 4.9 H Oxyhemoglobin 93.0 L Chloride 96.9 L Carbon Dioxide Glucose 114 H Alkaline Phosphatase 135 H Total Protein 01/01/22 01/01/22 05:35 05:35 MCH 27 L RDW 16.4 H Lymph % (Auto) [place] % (Auto) Lymph # (Auto) Seg Neutrophils % Seg Neuts % (Manual) 99.0 H Lymphocytes % (Manual) 1.0 L Seg Neutrophils # Man 9.5 H Lymphocytes # (Manual) 0.1 L ABG pH ABG pO2 ABG HCO3 ABG Base Excess Oxyhemoglobin Chloride 95.4 L Carbon Dioxide 32 H Glucose 167 H Alkaline Phosphatase 145 H Total Protein 9.1 H
--- NOTE | 2022-01-01 11:09 | Progress Note ---
Assessment and Plan Assessment and plan: History of present illness: 56-year-old female with a history of asthma and hyper tension comes in for s evere wheezing shortness of breath for the last 24 hours. Patient uses her home nebulizer treatments but with no relief. In the emergency room patient was saturating around 86%. With 3 to 5 L of nasal cannula oxygen patient's saturations improved to 95%. Patient received nebulizer treatments. No fever or chills. During my examination patient states that she has some relief and wanted to go home. Patient's wheezing was less compared to the time of admission. When the oxygen was removed she desaturated again to 86%. Patient had to be convinced to stay in the hospital for more breathing treatments steroids and antibiotics. Son was at the bedside. Hospital Course: 01/01: Pulmonary consultation placed, discussed case with Dr. Lloyd. D- dimer/LE doppler US ordered to R/o DVT/PE. Continue therapy outlined below for asthma exacerbation. anticipate d/c in next 24-48 hrs if patient demonstrates improvement. Assessment and Plan: #Acute hypoxic respiratory failure -Desaturated to 86% on room air in the emergency department. Patient was placed on nasal cannula currently at 3 L/min -D-dimer and Doppler ultrasound of lower extremity pending Chest x-ray: Mild cardiomegaly and central pulmonary venous congestion but no evidence of CHF DuoNeb, budesonide, Brovana Montelukast Solu-Medrol IV -Currently on Levaquin, doubt infectious etiology. can likely d/c tomorrow. Pulmonary consultation #Asthma exacerbation -Management as above #Essential hypertension -As needed hydralazine #Hyperglycemia -Sliding scale insulin Hemoglobin A1c ordered Worsened by steroid likely #Morbid Obesity + 15 min preventative health counseling on for balanced diet /regular exercise. #Advance care planning Disease education conducted, care plan discussed, diagnoses discussed, prognosis discussed, patient is full code, patient acknowledges understanding and agree with care plan, discussed with mother Evi Oglesby about patient clinical course and answered all questionst to satisfaction. +30 minutes. History Interval history: Patient seen and examined during bedside encounter. Patient sitting upright in chair currently on nasal cannula 3 L/min. Audible wheezes apparent patient in mild respiratory distress. She follows outpatient with Dr. Valiente for her pulmonary needs. She states that she saw him approximately 2 weeks ago. When asked about what inhaler therapy she utilizes patient could not recall other than stating that she is on "nebulizer therapy and a couple of inhalers" Hospitalist Physical - Physical exam Narrative exam: Physical Exam: VITAL SIGNS: Reviewed. GENERAL: The patient appears normally developed, Vital signs as documented. Mild respiratory distress. Currently on 3 L nasal cannula HEAD: No signs of head trauma. EYES: Pupils are equal. Extraocular motions intact. EARS: Hearing grossly intact. MOUTH: Oropharynx is normal. NECK: No adenopathy, no JVD. CHEST: Bilateral wheezes throughout lung lassiter. CARDIAC: Regular rate and rhythm. S1 and S2, without murmurs, gallops, or rubs. VASCULAR: No Edema. Peripheral pulses normal and equal in all extremities. ABDOMEN: Soft, non tender and non distended. No rebound or guarding, and no masses palpated. Bowel Sounds normal. MUSCULOSKELETAL: Good range of motion of all major joints. Extremities without clubbing, cyanosis or edema. NEUROLOGIC EXAM: Alert and oriented x 4. no focal sensory or strength deficits. PSYCHIATRIC: Mood normal. SKIN: detail exam as documented in skin assessment - Constitutional Vitals: Temp Pulse Resp BP Pulse Ox 97.7 F 128 H 22 195/90 88 01/01/22 01:57 01/01/22 08:29 01/01/22 08:29 01/01/22 02:57 01/01/22 08:31 General appearance: Present: severe distress, well-nourished HEART Score - HEART Score Troponin: Troponin T < 0.010 ng/mL (0.00-0.029) 12/31/21 14:14 Results - Labs CBC & Chem 7: 01/01/22 05:35 01/01/22 05:35 Labs: Laboratory Last Values WBC 9.6 K/mm3 (4.5-11.0) 01/01/22 05:35 RBC 4.98 M/mm3 (3.65-5.03) 01/01/22 05:35 Hgb 13.3 gm/dl (10.1-14.3) 01/01/22 05:35 Hct 42.5 % (30.3-42.9) 01/01/22 05:35 MCV 85 fl (79-97) 01/01/22 05:35 MCH 27 pg (28-32) L 01/01/22 05:35 MCHC 31 % (30-34) 01/01/22 05:35 RDW 16.4 % (13.2-15.2) H 01/01/22 05:35 Plt Count 293 K/mm3 (140-440) 01/01/22 05:35 Lymph % (Auto) 8.9 % (13.4-35.0) L 12/31/21 14:14 Maverick % (Auto) 8.0 % (0.0-7.3) H 12/31/21 14:14 Eos % (Auto) 3.3 % (0.0-4.3) 12/31/21 14:14 Baso % (Auto) 0.9 % (0.0-1.8) 12/31/21 14:14 Lymph # (Auto) 0.8 K/mm3 (1.2-5.4) L 12/31/21 14:14 Maverick # (Auto) 0.7 K/mm3 (0.0-0.8) 12/31/21 14:14 Eos # (Auto) 0.3 K/mm3 (0.0-0.4) 12/31/21 14:14 Baso # (Auto) 0.1 K/mm3 (0.0-0.1) 12/31/21 14:14 Add Manual Diff Complete 01/01/22 05:35 Total Counted 100 01/01/22 05:35 Seg Neutrophils % [employer] 01/01/22 05:35 Seg Neuts % (Manual) 99.0 % (40.0-70.0) H 01/01/22 05:35 Band Neutrophils % 0 % 01/01/22 05:35 Lymphocytes % (Manual) 1.0 % (13.4-35.0) L 01/01/22 05:35 Reactive Lymphs % (Man) 0 % 01/01/22 05:35 Monocytes % (Manual) 0 % (0.0-7.3) 01/01/22 05:35 Eosinophils % (Manual) 0 % (0.0-4.3) 01/01/22 05:35 Basophils % (Manual) 0 % (0.0-1.8) 01/01/22 05:35 Metamyelocytes % 0 % 01/01/22 05:35 Myelocytes % 0 % 01/01/22 05:35 Promyelocytes % 0 % 01/01/22 05:35 Blast Cells % 0 % 01/01/22 05:35 Nucleated RBC % Not Reportable 01/01/22 05:35 Seg Neutrophils # 7.2 K/mm3 (1.8-7.7) 12/31/21 14:14 Seg Neutrophils # Man 9.5 K/mm3 (1.8-7.7) H 01/01/22 05:35 Band Neutrophils # 0.0 K/mm3 01/01/22 05:35 Lymphocytes # (Manual) 0.1 K/mm3 (1.2-5.4) L 01/01/22 05:35 Abs React Lymphs (Man) 0.0 K/mm3 01/01/22 05:35 Monocytes # (Manual) 0.0 K/mm3 (0.0-0.8) 01/01/22 05:35 Eosinophils # (Manual) 0.0 K/mm3 (0.0-0.4) 01/01/22 05:35 Basophils # (Manual) 0.0 K/mm3 (0.0-0.1) 01/01/22 05:35 Metamyelocytes # 0.0 K/mm3 01/01/22 05:35 Myelocytes # 0.0 K/mm3 01/01/22 05:35 Promyelocytes # 0.0 K/mm3 01/01/22 05:35 Blast Cells # 0.0 K/mm3 01/01/22 05:35 WBC Morphology Not Reportable 01/01/22 05:35 Hypersegmented Neuts Not Reportable 01/01/22 05:35 Hyposegmented Neuts Not Reportable 01/01/22 05:35 Hypogranular Neuts Not Reportable 01/01/22 05:35 Smudge Cells Not Reportable 01/01/22 05:35 Toxic Granulation Not Reportable 01/01/22 05:35 Toxic Vacuolation Not Reportable 01/01/22 05:35 Dohle Bodies Not Reportable 01/01/22 05:35 Pelger-Huet Anomaly Not Reportable 01/01/22 05:35 Gianfranco Rods Not Reportable 01/01/22 05:35 Platelet Estimate Consistent w auto 01/01/22 05:35 Clumped Platelets Not Reportable 01/01/22 05:35 Plt Clumps, EDTA Not Reportable 01/01/22 05:35 Large Platelets Not Reportable 01/01/22 05:35 Giant Platelets Not Reportable 01/01/22 05:35 Platelet Satelliting Not Reportable 01/01/22 05:35 Plt Morphology Comment Not Reportable 01/01/22 05:35 RBC Morphology Normal 01/01/22 05:35 Dimorphic RBCs Not Reportable 01/01/22 05:35 Polychromasia Not Reportable 01/01/22 05:35 Hypochromasia Not Reportable 01/01/22 05:35 Poikilocytosis Not Reportable 01/01/22 05:35 Anisocytosis Not Reportable 01/01/22 05:35 Microcytosis Not Reportable 01/01/22 05:35 Macrocytosis Not Reportable 01/01/22 05:35 Spherocytes Not Reportable 01/01/22 05:35 Pappenheimer Bodies Not Reportable 01/01/22 05:35 Sickle Cells Not Reportable 01/01/22 05:35 Target Cells Not Reportable 01/01/22 05:35 Tear Drop Cells Not Reportable 01/01/22 05:35 Ovalocytes Not Reportable 01/01/22 05:35 Helmet Cells Not Reportable 01/01/22 05:35 [place] Bodies Not Reportable 01/01/22 05:35 Harper Rings Not Reportable 01/01/22 05:35 Efren Cells Not Reportable 01/01/22 05:35 Bite Cells Not Reportable 01/01/22 05:35 Crenated Cell Not Reportable 01/01/22 05:35 Elliptocytes Not Reportable 01/01/22 05:35 Acanthocytes (Spur) Not Reportable 01/01/22 05:35 Rouleaux Not Reportable 01/01/22 05:35 Hemoglobin C Crystals Not Reportable 01/01/22 05:35 Schistocytes Not Reportable 01/01/22 05:35 Malaria parasites Not Reportable 01/01/22 05:35 Zan Bodies Not Reportable 01/01/22 05:35 Hem Pathologist Commnt No 01/01/22 05:35 ABG pH 7.330 pH Units (7.350-7.450) L 12/31/21 14:39 ABG pCO2 63.7 mm Hg 12/31/21 14:39 ABG pO2 78.1 mm Hg (80.0-90.0) L 12/31/21 14:39 ABG HCO3 32.8 mmol/L (20.0-26.0) H 12/31/21 14:39 ABG O2 Saturation 95.2 % (95.0-99.0) 12/31/21 14:39 ABG O2 Content 18.1 (0.0-44) 12/31/21 14:39 ABG Base Excess 4.9 mmol/L (-2.0-3.0) H 12/31/21 14:39 ABG Hemoglobin 13.9 gm/dl (12.0-16.0) 12/31/21 14:39 ABG Carboxyhemoglobin 1.8 % (0.0-5.0) 12/31/21 14:39 ABG Methemoglobin 0.5 % (0.0-1.5) 12/31/21 14:39 Oxyhemoglobin 93.0 % (95.0-99.0) L 12/31/21 14:39 FiO2 45 % 12/31/21 14:39 Sodium 139 mmol/L (137-145) 01/01/22 05:35 Potassium 4.6 mmol/L (3.6-5.0) 01/01/22 05:35 Chloride 95.4 mmol/L (98-107) L 01/01/22 05:35 Carbon Dioxide 32 mmol/L (22-30) H 01/01/22 05:35 Anion Gap 16 mmol/L 01/01/22 05:35 BUN 12 mg/dL (7-17) 01/01/22 05:35 Creatinine 0.6 mg/dL (0.6-1.2) 01/01/22 05:35 Estimated GFR > 60 ml/min 01/01/22 05:35 BUN/Creatinine Ratio 20 % 01/01/22 05:35 Glucose 167 mg/dL (65-100) H 01/01/22 05:35 Calcium 9.8 mg/dL (8.4-10.2) 01/01/22 05:35 Total Bilirubin 0.60 mg/dL (0.1-1.2) 01/01/22 05:35 AST 14 units/L (5-40) 01/01/22 05:35 ALT 15 units/L (7-56) 01/01/22 05:35 Alkaline Phosphatase 145 units/L (35-129) H 01/01/22 05:35 Troponin T < 0.010 ng/mL (0.00-0.029) 12/31/21 14:14 NT-Pro-B Natriuret Pep 79.88 pg/mL (0-900) 12/31/21 14:14 Total Protein 9.1 g/dL (6.3-8.2) H 01/01/22 05:35 Albumin 4.3 g/dL (3.9-5) 01/01/22 05:35 Albumin/Globulin Ratio 0.9 % 01/01/22 05:35 Torrez/IV: Voiding Method Toilet Active Medications - Current Medications Current Medications: Generic Name Dose Route Start Last Admin Trade Name Freq PRN Reason Stop Dose Admin Acetaminophen 650 mg 12/31/21 23:30 Acetaminophen 325 Mg Tab PO Q4H PRN Pain MILD(1-3)/Fever >100.5/WEBB Albuterol 2.5 mg 01/01/22 02:08 01/01/22 06:01 Albuterol 2.5 Mg/3 Ml Nebu IH 2.5 mg Q4HRT PRN Administration Shortness Of Breath Albuterol/Ipratropium 1 ampul 01/01/22 20:00 Ipratropium/Albuterol Sulfate 3 Ml Ampul.Neb IH BIDRT MARIAH Arformoterol Tartrate 15 mcg 01/01/22 11:00 Arformoterol 15 Mcg/2 Ml Nebu IH Q12HRT MARIAH Budesonide 0.5 mg 01/01/22 11:00 Budesonide 0.5 Mg/2 Ml Nebu IH Q12HRT MARIAH Famotidine 20 mg 01/01/22 10:00 01/01/22 10:06 Famotidine 20 Mg Tab PO 20 mg BID MARIAH Administration Heparin Sodium (Porcine) 5,000 unit 01/01/22 10:00 01/01/22 10:05 Heparin 5,000 Unit/1 Ml Vial SUB-Q 5,000 unit Q12HR MARIAH Administration Hydralazine HCl 10 mg 01/01/22 02:44 01/01/22 02:57 Hydralazine 20 Mg/1 Ml Inj IV 10 mg Q6H PRN Administration Blood Pressure Hydromorphone HCl 0.5 mg 12/31/21 22:19 01/01/22 00:07 Hydromorphone 0.5 Mg/0.5 Ml Inj IV 0.5 mg Q3H PRN Administration Pain , Severe (7-10) Sodium Chloride 1,000 mls @ 75 mls/hr 12/31/21 23:00 01/01/22 05:26 Nacl 0.9% 1000 Ml IV 75 mls/hr DIRECT MARIAH Administration Levofloxacin/Dextrose 750 mg in 150 mls @ 100 mls/hr 01/01/22 10:00 01/01/22 10:05 Levaquin 750mg/150ml IV 01/05/22 11:29 100 mls/hr Q24HR MARIAH Administration Protocol Methylprednisolone Sodium Succinate 60 mg 12/31/21 23:30 01/01/22 05:25 Methylprednisolone Sod Succinate 125 Mg/2 Ml Inj IV 60 mg Q8HR MARIAH Administration Metoclopramide HCl 10 mg 12/31/21 23:30 Metoclopramide 10 Mg/2 Ml Inj IV Q6H PRN Nausea And Vomiting Montelukast Sodium 10 mg 01/01/22 22:00 Montelukast 10 Mg Tab PO QHS MARIAH Ondansetron HCl 4 mg 12/31/21 23:30 01/01/22 00:08 Ondansetron 4 Mg/2 Ml Inj IV 4 mg Q8H PRN Administration Nausea And Vomiting Oxycodone/Acetaminophen 1 tab 12/31/21 23:30 Oxycodone /Acetaminophen 5-325mg Tab PO Q6H PRN Pain, Moderate (4-6) Sodium Chloride 10 ml 01/01/22 10:00 01/01/22 10:06 Sodium Chloride 0.9% 10 Ml Flush Syringe IV 10 ml BID MARIAH Administration Sodium Chloride 10 ml 12/31/21 22:19 01/01/22 05:26 Sodium Chloride 0.9% 10 Ml Flush Syringe IV 10 ml PRN PRN Administration LINE FLUSH
[2022-01-01] MEDS: ARFORMOTEROL 15 MCG/2 ML NEBU IH SCH ×2 (14:20→20:40)
[2022-01-01] MEDS: BUDESONIDE 0.5 MG/2 ML NEBU IH SCH ×2 (14:21→20:40)
[2022-01-01] MEDS ORDERED: NON-FORMULARY EACH (Lisinopril 40 MG) PO SCH (19:00)
[2022-01-01] MEDS: IPRATROPIUM/ALBUTEROL SULFATE 3 ML AMPUL.NEB IH SCH (20:40)
[2022-01-01] MEDS: LISINOPRIL 40 MG TAB PO SCH (21:27)
[2022-01-01] MEDS: MONTELUKAST 10 MG TAB PO SCH (21:27)
[2022-01-01] MEDS: amLODIPine 10 MG TAB PO SCH (21:27)
--- NOTE | 2022-01-02 01:35 | Consultation ---
DATE OF CONSULTATION: 01/01/2022 PULMONARY CRITICAL CARE CONSULT NOTE CONSULTING PHYSICIAN: Dr. Chen. REASON FOR CONSULTATION: Acute asthma exacerbation. CHIEF COMPLAINT AND HISTORY OF PRESENT ILLNESS: As follows: The patient is a now 56-year-old morbidly obese female with a past medical history according to her significant for a diagnosis of asthma that she has had since childhood. She has never been intubated. She seems to be only on short-acting bronchodilators at home, but I suspect there is an element of noncompliance also at play here. She states that she has been told she snores, but she has never been diagnosed with obstructive sleep apnea. She has never been intubated as a result of an asthma attack and this is her first hospitalization this year. She came into the Emergency Room complaining of severe wheezing and shortness of breath that had been going on for about 24 hours. She had used as short-acting bronchodilators at home without improvement. She was found to be hypoxemic when she came into the ER with O2 sats about 86% on room air. She was ultimately admitted with a diagnosis of an acute asthma exacerbation and we are asked to assist with management. When I stopped by to see her, she was resting and sitting in the chair actually, still with a mildly increased respiratory effort at rest. She denied any new-onset leg pain or swelling, either unilaterally or bilaterally or any suggestion of a deep venous thrombosis. She denies any recent long distance travel. She denies any rhinorrhea, any diarrhea, nausea, vomiting, any constitutional symptoms. She denies any sick contacts. She states that she still suffers from nightly awakenings most nights of the week. This really is as much of the history of presentation as I have. She denies any hemoptysis. She has had clear white phlegm intermittently coughed up. PAST MEDICAL HISTORY: Again, significant for hypertension, for asthma, for morbid obesity, and history of anemia. PAST SURGICAL HISTORY: She has had sections in the past. MEDICATIONS: She was on at the time I stopped by to see her according to the medication administration record included the following, Tylenol 650 mg p.o. q. 4 hours p.r.n. mild pain or fever, albuterol 2.5 mg nebulized q. 4 hours p.r.n. shortness of breath, DuoNeb nebulizer treatments scheduled q.i.d., Pepcid 20 mg p.o. b.i.d., heparin 5000 units subcutaneous q. 12 hours, hydralazine 10 mg IV q. 6 hours p.r.n. elevated blood pressure, Dilaudid 0.5 mg IV q. 3 hours p.r.n. severe pain, Levaquin 750 mg IV daily, Solu-Medrol 60 mg IV q. 8 hours, Reglan 10 mg IV q. 6 hours p.r.n. nausea and vomiting. Singulair 10 mg p.o. at bedtime, Zofran 4 mg IV q. 8 hours p.r.n. nausea and vomiting, Percocet 5/325 one tablet p.o. q. 6 hours p.r.n. moderate pain. ALLERGIES: No known drug allergies. DIET: Morbidly obese. Denies acute weight loss or gain in the preceding few weeks to months. FAMILY AND SOCIAL HISTORY: Lives in the community. Denies alcohol, tobacco or illicit drug use or abuse. FAMILY HISTORY: Otherwise, noncontributory. REVIEW OF SYSTEMS: No loss of consciousness. No new onset seizures. No new onset focal weakness. She denies gross hematochezia or melena. She denies gross hematuria or dysuria. No hematemesis, no hemoptysis. She denies new onset seizures. She denies polydipsia, polyuria. She denies heat or cold intolerance. Complete 13-system review of system was obtained. Pertinent positives and/or negatives as in body of history above, otherwise noncontributory. PHYSICAL EXAMINATION: VITAL SIGNS: On presentation, she was afebrile, temperature 98.7 degrees Fahrenheit, pulse of 116, respiratory rate of 24, blood pressure 198/106, O2 sats 85%, inspired oxygen concentration at the time was not recorded. When I stopped by to see her, her O2 sats were 98%; however, that was on 3 liters nasal cannula. GENERAL: She is a middle-aged, morbidly obese female, normocephalic, atraumatic, sitting up in chair with mildly increased respiratory effort at rest. HEAD, EYES, EARS, NOSE AND THROAT: Anicteric. No conjunctival erythema. Oropharynx was moist. No gross jugular venous distention, no thyromegaly. Mallampati 4 oropharynx. She does have a large neck circumference. Grossly, there were no palpable lymph nodes in the supraclavicular or submandibular lymph node chains. LUNGS: Auscultation of both lung lassiter significant mostly for diminished bilateral breath sounds, significantly prolonged expiratory phase, bibasilar inspiratory rhonchi and faint end-expiratory wheezing. HEART: Sounds 1 and 2 are heard. They were regular in rate and rhythm at the time of my evaluation without overt rubs or murmurs. ABDOMEN: Soft, full, protuberant. Bowel sounds are positive, nontender, no palpable hepatosplenomegaly. EXTREMITIES: Without overt digital clubbing or cyanosis, no pedal edema. Pedal pulses are 2+ bilaterally. NEUROLOGIC: Pupils are equal, round, about 4 mm, reactive to light. Extraocular muscle movements are intact. She moves all 4 extremities spontaneously. SKIN: Of normal turgor without overt cellulitis or rash in the areas I examined. Please see the wound care nurses' notes for full description of skin. PSYCHIATRIC: Mood was normal. Affect was appropriate. She had intact judgment and insight. LABORATORY DATA: From my review are as follows: Admission white cell count 9100, hemoglobin 12.9, hematocrit 42.1, platelet count 257. No band forms on the manual differential. Arterial blood gas showed a pH of 7.33, pCO2 of 64, pO2 of 78 that was on 45% FiO2. Serum sodium 139, potassium 4.4, chloride 97, bicarbonate 30, BUN 10, creatinine 0.6, glucose 115. Liver function tests essentially within normal limits. Troponin within normal limits. BNP within normal limits. No microbiology studies. A chest x-ray was done. I have reviewed the x-ray as well as the radiologist's interpretation. She does have gross cardiomegaly. She does have evidence of hyperinflation and increased interstitial markings, appear chronic, with a mild element of interstitial edema. I cannot rule out small pleural effusions bilaterally, but I do think it is a soft tissue shadows that are obscuring the angles, no gross pneumothorax, no gross bony fracture. There is some flattening of the right hemidiaphragm. ASSESSMENT: 1. Acute exacerbation of chronic obstructive lung disease. 2. History of asthma. 3. Likely obstructive sleep apnea. 4. Obesity hypoventilation syndrome. 5. Hypertensive urgency. 6. Possible congestive heart failure. 7. Mild pulmonary edema. 8. History of hypertension. 9. History of anemia. 10. Diagnosis of community-acquired pneumonia. PLAN: I have explained to her the importance of compliance with medical care. I explained to her she needs to be on a full regimen of bronchodilators including long-acting bronchodilators. Also, I have told her she is going to need to be on her inhaled corticosteroids. We will continue systemic steroids. Right now, I am going to schedule Brovana and Pulmicort. I will reduce the scheduled DuoNeb dosing to t.i.d. initially, actually I will keep it b.i.d. with p.r.n. albuterol use. I do agree with empiric antibiotic therapy for possible community-acquired pneumonia. Five days of empiric Levaquin therapy is appropriate. She can be converted to oral dosing. I will do a quick venous thromboembolic disease workup. I will first do a D-dimer level and bilateral lower extremity Dopplers. I do have a low pretest probability for venous thromboembolic disorder, but she certainly is at risk, relatively immobile upon my discussion with her. Otherwise, she may benefit from gentle diuresis. I do note her BUN and creatinine do not seem to suggest intravascular volume depletion. I will give her a one-time dose of Lasix 20 mg IV. She will need a sleep study. She does admit to snoring and has never been tested according to her. So, she will benefit from Sleep Clinic evaluation. Bilevel positive airway pressure ventilation therapy will be scheduled bedtime with p.r.n. daytime use if she can tolerate it. Otherwise, we will continue systemic steroids. She is appropriately on GI and DVT prophylaxis. Flu and pneumonia vaccination will be addressed per protocol. Thank you very much for the consult. We will follow along and make further recommendations as picture progresses/becomes clearer. TID: [id number] RECEIPT: [id number] LUIS/ADRIAN
[2022-01-02] MEDS: methylPREDNISolone Sod Succinate 125 MG/2 ML INJ IV SCH ×3 (05:20→21:47)
[2022-01-02] MEDS: HEPARIN 5,000 UNIT/1 ML VIAL SUB-Q SCH ×3 (08:32→21:46)
[2022-01-02] MEDS: FAMOTIDINE 20 MG TAB PO SCH ×3 (08:33→21:45)
[2022-01-02] MEDS: amLODIPine 10 MG TAB PO SCH ×2 (08:33→10:10)
[2022-01-02] MEDS: LISINOPRIL 40 MG TAB PO SCH ×2 (08:33→10:11)
[2022-01-02] MEDS ORDERED: LEVALBUTEROL 0.63 MG/3 ML NEBU IH PRN (09:00)
[2022-01-02] MEDS: ARFORMOTEROL 15 MCG/2 ML NEBU IH SCH ×2 (09:09→20:09)
[2022-01-02] MEDS: IPRATROPIUM 0.02% NEBU 2.5 ML IH SCH ×4 (09:10→20:09)
[2022-01-02] MEDS: BUDESONIDE 0.5 MG/2 ML NEBU IH SCH ×2 (09:10→20:09)
--- NOTE | 2022-01-02 09:14 | Progress Note ---
Assessment and Plan 56-year-old female with a history of asthma and hyper tension comes in for severe wheezing shortness of breath for the last 24 hours. Patient uses her home nebulizer treatments but with no relief. In the emergency room patient was saturating around 86%. With 3 to 5 L of nasal cannula oxygen patient's saturations improved to 95%. Patient received nebulizer treatments. No fever or chills. Patient states that she has some relief and wanted to go home. Patient's wheezing was less compared to the time of admission. When the oxygen was removed she desaturated again to 86%. Patient convinced to stay in the hospital for more breathing treatments steroids and antibiotics. Patient has history of Hypertension,Asthma, Anemia. Patient has history of sleep apnea. Not using CPAP now. Patient has no history of smoking, alcohol or drug abuse. Works as [employer]. Patient has no known drug allergies. Patient awake. Sitting up in chair. Still on High flow O2. O2 saturation 97%. Says breathing better than she came into the hospital. ABG on FIO2 40%. ABG pH 7.330 pH Units (7.350-7.450) L 12/31/21 14:39 ABG pCO2 63.7 mm Hg 12/31/21 14:39 ABG pO2 78.1 mm Hg (80.0-90.0) L 12/31/21 14:39 ABG O2 Saturation 95.2 % (95.0-99.0) 12/31/21 14:39 Patient is candidate for home O2. Recommend to repeat ABGs on room air before discharge. Recommend place her on BIPAP 20/10, rate 16, FIO2 45% especially during sleep . If patient having more shortness of breath or having any altered mental status, recommend to transfer to ICU or telemetry. Chest xray done 12/31/21 reported Mild cardiomegaly and central pulmonary venous congestion but no evidence for CHF. Patient is on I/V solumedrol, Brovanna/Budesonide aerosol treatments , Albutrrol/atrovent aerosol treatments prn for shortness of breath, Levaquin, S/C Heparin, Famotidine. I spent critical care time of 45 minutes, obtaining history, review the chart, Examine the patient, review lab results, review chest xray, talking to nursing staff, respiratory therapy and work up plan of treatment in this critically ill patient with acute hypercapnic and hypoxic respiratory failure. - Patient Problems (1) Acute respiratory failure with hypoxia and hypercapnia Current Visit: Yes Status: Acute Plan to address problem: Patient is presently on High flow O2 10 litres. Recommend BIPAP 20/10, rate 16, FIO2 45% especially during sleep Continue I/V solumedrol. Continue albuterol/atrovent aerosol treatments. Continue S/C Heparin Continue famotidine. Continue Levaquin. (2) Asthma exacerbation Current Visit: Yes Status: Acute Qualifiers: Asthma severity: severe Plan to address problem: Patient is presently on High flow O2 10 litres. Recommend BIPAP 20/10, rate 16, FIO2 45% especially during sleep Continue I/V solumedrol. Continue albuterol/atrovent aerosol treatments. Continue S/C Heparin Continue famotidine. Continue Levaquin. (3) Hypertension Current Visit: Yes Status: Chronic Qualifiers: Hypertension type: primary hypertension Qualified Code(s): I10 - Essential (primary) hypertension Plan to address problem: Management as per primary care. (4) Morbid obesity with BMI of 40.0-44.9, adult Current Visit: Yes Status: Acute Plan to address problem: Couseled to loose weight. Recommend dietary consultation for weight reduction diet. (5) Sleep apnea in adult Current Visit: Yes Status: Acute Plan to address problem: Recommend to place her on BIPAP 20/10, rate 16, FIO2 45% during night time. Recommend to loose weight. Maintain sleep hygiene. Recommend not to drive or operate heavy equipment with sleepiness. Avoid alcohol, sedatives and narcotics. (6) Morbid obesity with alveolar hypoventilation Current Visit: Yes Status: Acute Plan to address problem: ABGs on room air during day time. BIPAP 20/10, rate 16, FIO2 45%. Recommend to loose weight. Maintain sleep hygiene. Recommend not to drive or operate heavy equipment with sleepiness. Avoid alcohol, sedatives and narcotics. Subjective Date of service: 01/02/22 Interval history: 56-year-old female with a history of asthma and hyper tension comes in for severe wheezing shortness of breath for the last 24 hours. Patient uses her home nebulizer treatments but with no relief. In the emergency room patient was saturating around 86%. With 3 to 5 L of nasal cannula oxygen patient's saturations improved to 95%. Patient received nebulizer treatments. No fever or chills. Patient states that she has some relief and wanted to go home. Patient's wheezing was less compared to the time of admission. When the oxygen was removed she desaturated again to 86%. Patient convinced to stay in the hospital for more breathing treatments steroids and antibiotics. Patient has history of Hypertension,Asthma, Anemia. Patient has history of sleep apnea. Not using CPAP now. Patient has no history of smoking, alcohol or drug abuse. Works as [employer]. Patient has no known drug allergies. Patient awake. Sitting up in chair. Still on High flow O2. O2 saturation 97%. Says breathing better than she came into the hospital. ABG on FIO2 40%. ABG pH 7.330 pH Units (7.350-7.450) L 12/31/21 14:39 ABG pCO2 63.7 mm Hg 12/31/21 14:39 ABG pO2 78.1 mm Hg (80.0-90.0) L 12/31/21 14:39 ABG O2 Saturation 95.2 % (95.0-99.0) 12/31/21 14:39 Patient is candidate for home O2. Recommend to repeat ABGs on room air before discharge. Recommend place her on BIPAP 20/10, rate 16, FIO2 45% especially during sleep . If patient having more shortness of breath or having any altered mental status, recommend to transfer to ICU or telemetry. Chest xray done 12/31/21 reported Mild cardiomegaly and central pulmonary venous congestion but no evidence for CHF. Patient is on I/V solumedrol, Brovanna/Budesonide aerosol treatments , Albutrrol/atrovent aerosol treatments prn for shortness of breath, Levaquin, S/C Heparin, Famotidine. Objective Vital Signs - 12hr 01/01/22 01/02/22 23:36 06:22 Temperature 98.4 F 98.2 F Pulse Rate 118 H 108 H Respiratory 22 24 Rate Blood Pressure 113/91 134/72 O2 Sat by Pulse 96 97 Oximetry Constitutional: alert, appears uncomfortable, other (Appears tired.) Eyes: non-icteric ENT: oropharynx moist Neck: supple, no lymphadenopathy Effort: mildly labored Ascultation: Bilateral: diminished breath sounds (at the bases.), wheezes Cardiovascular: regular rate and rhythm Gastrointestinal: normoactive bowel sounds, soft, non-tender Integumentary: normal Extremities: no cyanosis, no edema Neurologic: normal mental status, non-focal exam, pupils equal and round, CN II- XII normal Psychiatric: mood appropriate, affect normal CBC and BMP: 01/01/22 05:35 01/01/22 05:35 ABG, PT/INR, D-dimer: ABG ABG pH 7.330 pH Units (7.350-7.450) L 12/31/21 14:39 ABG pCO2 63.7 mm Hg 12/31/21 14:39 ABG pO2 78.1 mm Hg (80.0-90.0) L 12/31/21 14:39 ABG O2 Saturation 95.2 % (95.0-99.0) 12/31/21 14:39 PT/INR, D-dimer D-Dimer 397.42 ng/mlDDU (0-234) H 01/01/22 13:23 Abnormal lab findings: Abnormal Labs 12/31/21 12/31/21 12/31/21 14:14 14:14 14:39 MCH 26 L RDW 16.3 H Lymph % (Auto) 8.9 L [place] % (Auto) 8.0 H Lymph # (Auto) 0.8 L Seg Neutrophils % 78.9 H Seg Neuts % (Manual) Lymphocytes % (Manual) Seg Neutrophils # Man Lymphocytes # (Manual) D-Dimer ABG pH 7.330 L ABG pO2 78.1 L ABG HCO3 32.8 H ABG Base Excess 4.9 H Oxyhemoglobin 93.0 L Chloride 96.9 L Carbon Dioxide Glucose 114 H Alkaline Phosphatase 135 H Total Protein 01/01/22 01/01/22 01/01/22 05:35 05:35 13:23 MCH 27 L RDW 16.4 H Lymph % (Auto) [place] % (Auto) Lymph # (Auto) Seg Neutrophils % Seg Neuts % (Manual) 99.0 H Lymphocytes % (Manual) 1.0 L Seg Neutrophils # Man 9.5 H Lymphocytes # (Manual) 0.1 L D-Dimer 397.42 H ABG pH ABG pO2 ABG HCO3 ABG Base Excess Oxyhemoglobin Chloride 95.4 L Carbon Dioxide 32 H Glucose 167 H Alkaline Phosphatase 145 H Total Protein 9.1 H Chest x-ray: report reviewed, image reviewed Additional Studies: CHEST 1 VIEW 12/31/21 INDICATION: SOB. COMPARISON: None FINDINGS: Support devices: None. Heart: Mild cardiomegaly Lungs/Pleura: Mild central pulmonary venous congestion. No evidence for infiltrate, pleural effusion or pneumothorax. Additional findings: None. IMPRESSION: Mild cardiomegaly and central pulmonary venous congestion but no evidence for CHF.
[2022-01-02] MEDS: IPRATROPIUM/ALBUTEROL SULFATE 3 ML AMPUL.NEB IH SCH (09:24)
--- NOTE | 2022-01-02 09:34 | Electrocardiograph Report ---
Test Date: 2021-12-31 Test Time: 13:57:12 Pat Name: MATHEW ARCHIBALD Department: Room: A366 Gender: F [employer] Director: KATYA : 1965 Requested By: LAVINIA KOCH Order Number: [id number] Reading MD: Miky Minaya Measurements Intervals [place] Rate: 117 P: 74 AL: 165 QRS: 38 QRSD: 84 T: 87 QT: 347 QTc: 474 Interpretive Statements Sinus tachycardia Atrial premature complexes Nonspecific T abnormalities, lateral leads No previous ECG available for comparison Electronically Signed On 01-02-2022 9:33:47 EDT by Miky Minaya
--- NOTE | 2022-01-02 10:56 | Vascular Lab Report ---
DUPLEX DOPPLER LOWER EXTREMITY VEINS, BILATERAL INDICATION: Bilateral lower extremity swelling. TECHNIQUE: Duplex doppler imaging was performed through the veins of both lower extremities using ve nous compression and other maneuvers. COMPARISON: No relevant prior imaging study available. FINDINGS: Right Common femoral vein: Negative. Right Superficial femoral vein: Negative. Right Popliteal vein: Negative. Right Calf veins: Negative. Left Common femoral vein: Negative. Left Superficial femoral vein: Negative. Left Popliteal vein: Negative. Left Calf veins: Negative. Additional findings: There is nonspecific subcutaneous edema bilaterally.. IMPRESSION: No sonographic evidence for DVT in either lower extremity. Signer Name: Chris Mcconnell Jr, MD Signed: 01/02/2022 10:51 AM Workstation Name: [id number]
--- NOTE | 2022-01-02 11:19 | Progress Note ---
Assessment and Plan Assessment and plan: History of present illness: 56-year-old female with a history of asthma and hyper tension comes in for s evere wheezing shortness of breath for the last 24 hours. Patient uses her home nebulizer treatments but with no relief. In the emergency room patient was saturating around 86%. With 3 to 5 L of nasal cannula oxygen patient's saturations improved to 95%. Patient received nebulizer treatments. No fever or chills. During my examination patient states that she has some relief and wanted to go home. Patient's wheezing was less compared to the time of admission. When the oxygen was removed she desaturated again to 86%. Patient had to be convinced to stay in the hospital for more breathing treatments steroids and antibiotics. Son was at the bedside. Hospital Course: 01/01: Pulmonary consultation placed, discussed case with Dr. Lloyd. D- dimer/LE doppler US ordered to R/o DVT/PE. Continue therapy outlined below for asthma exacerbation. anticipate d/c in next 24-48 hrs if patient demonstrates improvement. 01/02: Appears fatigued. Ordered PT for pulmonary rehabilitation as well as home O2 evaluation. Currently requiring 10l/min on salter nc. suspect pt is tachycardic due to albuterol. albuterol d/c, started on levalbuterol. continue steroids, inhaler therapy. Will follow pulmonary recommendations. Assessment and Plan: #Acute hypoxic respiratory failure -Desaturated to 86% on room air in the emergency department. Patient was placed on nasal cannula currently at 3 L/min -D-dimer and Doppler ultrasound of lower extremity pending Chest x-ray: Mild cardiomegaly and central pulmonary venous congestion but no evidence of CHF DuoNeb, budesonide, Brovana Montelukast Solu-Medrol IV -Currently on Levaquin, doubt infectious etiology. can likely d/c tomorrow. Pulmonary consultation #Asthma exacerbation -Management as above #Essential hypertension -As needed hydralazine #Hyperglycemia -Sliding scale insulin Hemoglobin A1c ordered Worsened by steroid likely #Morbid Obesity + 15 min preventative health counseling on for balanced diet /regular exercise. #Advance care planning Disease education conducted, care plan discussed, diagnoses discussed, prognosis discussed, patient is full code, patient acknowledges understanding and agree with care plan, +30 minutes. History Interval history: Saw and evaluated patient at bedside encounter. Remains on supplemental oxygen, currently on salter nasal cannula 10 L/min. Patient states that her breathing has improved however she appeared very fatigued. Patient states that she had not moved from chair since yesterday. Hospitalist Physical - Physical exam Narrative exam: Physical Exam: VITAL SIGNS: Reviewed. GENERAL: The patient appears normally developed, Vital signs as documented. Mild respiratory distress. Currently on 10 l/min salter nc HEAD: No signs of head trauma. EYES: Pupils are equal. Extraocular motions intact. EARS: Hearing grossly intact. MOUTH: Oropharynx is normal. NECK: No adenopathy, no JVD. CHEST: Bilateral wheezes throughout lung lassiter. Persisting, minimal improvement. CARDIAC: Regular rate and rhythm. S1 and S2, without murmurs, gallops, or rubs. VASCULAR: No Edema. Peripheral pulses normal and equal in all extremities. ABDOMEN: Soft, non tender and non distended. No rebound or guarding, and no masses palpated. Bowel Sounds normal. MUSCULOSKELETAL: Good range of motion of all major joints. Extremities without clubbing, cyanosis or edema. NEUROLOGIC EXAM: Alert and oriented x 4. no focal sensory or strength deficits. PSYCHIATRIC: Mood normal. SKIN: detail exam as documented in skin assessment - Constitutional Vitals: Temp Pulse Resp BP Pulse Ox 98.2 F 108 H 20 134/72 96 01/02/22 06:22 01/02/22 09:11 01/02/22 09:11 01/02/22 06:22 01/02/22 10:25 General appearance: Present: severe distress, well-nourished HEART Score - HEART Score Troponin: Troponin T < 0.010 ng/mL (0.00-0.029) 12/31/21 14:14 Results - Labs CBC & Chem 7: 01/01/22 05:35 01/01/22 05:35 Labs: Laboratory Last Values WBC 9.6 K/mm3 (4.5-11.0) 01/01/22 05:35 RBC 4.98 M/mm3 (3.65-5.03) 01/01/22 05:35 Hgb 13.3 gm/dl (10.1-14.3) 01/01/22 05:35 Hct 42.5 % (30.3-42.9) 01/01/22 05:35 MCV 85 fl (79-97) 01/01/22 05:35 MCH 27 pg (28-32) L 01/01/22 05:35 MCHC 31 % (30-34) 01/01/22 05:35 RDW 16.4 % (13.2-15.2) H 01/01/22 05:35 Plt Count 293 K/mm3 (140-440) 01/01/22 05:35 Lymph % (Auto) 8.9 % (13.4-35.0) L 12/31/21 14:14 [place] % (Auto) 8.0 % (0.0-7.3) H 12/31/21 14:14 Eos % (Auto) 3.3 % (0.0-4.3) 12/31/21 14:14 Baso % (Auto) 0.9 % (0.0-1.8) 12/31/21 14:14 Lymph # (Auto) 0.8 K/mm3 (1.2-5.4) L 12/31/21 14:14 [place] # (Auto) 0.7 K/mm3 (0.0-0.8) 12/31/21 14:14 Eos # (Auto) 0.3 K/mm3 (0.0-0.4) 12/31/21 14:14 Baso # (Auto) 0.1 K/mm3 (0.0-0.1) 12/31/21 14:14 Add Manual Diff Complete 01/01/22 05:35 Total Counted 100 01/01/22 05:35 Seg Neutrophils % Commercial [employer] 01/01/22 05:35 Seg Neuts % (Manual) 99.0 % (40.0-70.0) H 01/01/22 05:35 Band Neutrophils % 0 % 01/01/22 05:35 Lymphocytes % (Manual) 1.0 % (13.4-35.0) L 01/01/22 05:35 Reactive Lymphs % (Man) 0 % 01/01/22 05:35 Monocytes % (Manual) 0 % (0.0-7.3) 01/01/22 05:35 Eosinophils % (Manual) 0 % (0.0-4.3) 01/01/22 05:35 Basophils % (Manual) 0 % (0.0-1.8) 01/01/22 05:35 Metamyelocytes % 0 % 01/01/22 05:35 Myelocytes % 0 % 01/01/22 05:35 Promyelocytes % 0 % 01/01/22 05:35 Blast Cells % 0 % 01/01/22 05:35 Nucleated RBC % Not Reportable 01/01/22 05:35 Seg Neutrophils # 7.2 K/mm3 (1.8-7.7) 12/31/21 14:14 Seg Neutrophils # Man 9.5 K/mm3 (1.8-7.7) H 01/01/22 05:35 Band Neutrophils # 0.0 K/mm3 01/01/22 05:35 Lymphocytes # (Manual) 0.1 K/mm3 (1.2-5.4) L 01/01/22 05:35 Abs React Lymphs (Man) 0.0 K/mm3 01/01/22 05:35 Monocytes # (Manual) 0.0 K/mm3 (0.0-0.8) 01/01/22 05:35 Eosinophils # (Manual) 0.0 K/mm3 (0.0-0.4) 01/01/22 05:35 Basophils # (Manual) 0.0 K/mm3 (0.0-0.1) 01/01/22 05:35 Metamyelocytes # 0.0 K/mm3 01/01/22 05:35 Myelocytes # 0.0 K/mm3 01/01/22 05:35 Promyelocytes # 0.0 K/mm3 01/01/22 05:35 Blast Cells # 0.0 K/mm3 01/01/22 05:35 WBC Morphology Not Reportable 01/01/22 05:35 Hypersegmented Neuts Not Reportable 01/01/22 05:35 Hyposegmented Neuts Not Reportable 01/01/22 05:35 Hypogranular Neuts Not Reportable 01/01/22 05:35 Smudge Cells Not Reportable 01/01/22 05:35 Toxic Granulation Not Reportable 01/01/22 05:35 Toxic Vacuolation Not Reportable 01/01/22 05:35 Dohle Bodies Not Reportable 01/01/22 05:35 Pelger-Huet Anomaly Not Reportable 01/01/22 05:35 Gianfranco Rods Not Reportable 01/01/22 05:35 Platelet Estimate Consistent w auto 01/01/22 05:35 Clumped Platelets Not Reportable 01/01/22 05:35 Plt Clumps, EDTA Not Reportable 01/01/22 05:35 Large Platelets Not Reportable 01/01/22 05:35 Giant Platelets Not Reportable 01/01/22 05:35 Platelet Satelliting Not Reportable 01/01/22 05:35 Plt Morphology Comment Not Reportable 01/01/22 05:35 RBC Morphology Normal 01/01/22 05:35 Dimorphic RBCs Not Reportable 01/01/22 05:35 Polychromasia Not Reportable 01/01/22 05:35 Hypochromasia Not Reportable 01/01/22 05:35 Poikilocytosis Not Reportable 01/01/22 05:35 Anisocytosis Not Reportable 01/01/22 05:35 Microcytosis Not Reportable 01/01/22 05:35 Macrocytosis Not Reportable 01/01/22 05:35 Spherocytes Not Reportable 01/01/22 05:35 Pappenheimer Bodies Not Reportable 01/01/22 05:35 Sickle Cells Not Reportable 01/01/22 05:35 Target Cells Not Reportable 01/01/22 05:35 Tear Drop Cells Not Reportable 01/01/22 05:35 Ovalocytes Not Reportable 01/01/22 05:35 Helmet Cells Not Reportable 01/01/22 05:35 [place] Bodies Not Reportable 01/01/22 05:35 [place] Rings Not Reportable 01/01/22 05:35 Efren Cells Not Reportable 01/01/22 05:35 Bite Cells Not Reportable 01/01/22 05:35 Crenated Cell Not Reportable 01/01/22 05:35 Elliptocytes Not Reportable 01/01/22 05:35 Acanthocytes (Spur) Not Reportable 01/01/22 05:35 Rouleaux Not Reportable 01/01/22 05:35 Hemoglobin C Crystals Not Reportable 01/01/22 05:35 Schistocytes Not Reportable 01/01/22 05:35 Malaria parasites Not Reportable 01/01/22 05:35 Zan Bodies Not Reportable 01/01/22 05:35 Hem Pathologist Commnt No 01/01/22 05:35 D-Dimer 397.42 ng/mlDDU (0-234) H 01/01/22 13:23 ABG pH 7.330 pH Units (7.350-7.450) L 12/31/21 14:39 ABG pCO2 63.7 mm Hg 12/31/21 14:39 ABG pO2 78.1 mm Hg (80.0-90.0) L 12/31/21 14:39 ABG HCO3 32.8 mmol/L (20.0-26.0) H 12/31/21 14:39 ABG O2 Saturation 95.2 % (95.0-99.0) 12/31/21 14:39 ABG O2 Content 18.1 (0.0-44) 12/31/21 14:39 ABG Base Excess 4.9 mmol/L (-2.0-3.0) H 12/31/21 14:39 ABG Hemoglobin 13.9 gm/dl (12.0-16.0) 12/31/21 14:39 ABG Carboxyhemoglobin 1.8 % (0.0-5.0) 12/31/21 14:39 ABG Methemoglobin 0.5 % (0.0-1.5) 12/31/21 14:39 Oxyhemoglobin 93.0 % (95.0-99.0) L 12/31/21 14:39 FiO2 45 % 12/31/21 14:39 Sodium 139 mmol/L (137-145) 01/01/22 05:35 Potassium 4.6 mmol/L (3.6-5.0) 01/01/22 05:35 Chloride 95.4 mmol/L (98-107) L 01/01/22 05:35 Carbon Dioxide 32 mmol/L (22-30) H 01/01/22 05:35 Anion Gap 16 mmol/L 01/01/22 05:35 BUN 12 mg/dL (7-17) 01/01/22 05:35 Creatinine 0.6 mg/dL (0.6-1.2) 01/01/22 05:35 Estimated GFR > 60 ml/min 01/01/22 05:35 BUN/Creatinine Ratio 20 % 01/01/22 05:35 Glucose 167 mg/dL (65-100) H 01/01/22 05:35 Calcium 9.8 mg/dL (8.4-10.2) 01/01/22 05:35 Total Bilirubin 0.60 mg/dL (0.1-1.2) 01/01/22 05:35 AST 14 units/L (5-40) 01/01/22 05:35 ALT 15 units/L (7-56) 01/01/22 05:35 Alkaline Phosphatase 145 units/L (35-129) H 01/01/22 05:35 Troponin T < 0.010 ng/mL (0.00-0.029) 12/31/21 14:14 NT-Pro-B Natriuret Pep 79.88 pg/mL (0-900) 12/31/21 14:14 Total Protein 9.1 g/dL (6.3-8.2) H 01/01/22 05:35 Albumin 4.3 g/dL (3.9-5) 01/01/22 05:35 Albumin/Globulin Ratio 0.9 % 01/01/22 05:35 Torrez/IV: Voiding Method Toilet Active Medications - Current Medications Current Medications: Generic Name Dose Route Start Last Admin Trade Name Freq PRN Reason Stop Dose Admin Acetaminophen 650 mg 12/31/21 23:30 Acetaminophen 325 Mg Tab PO Q4H PRN Pain MILD(1-3)/Fever >100.5/WEBB Albuterol 1.25 mg 01/02/22 12:00 Albuterol 2.5 Mg/3 Ml Nebu IH Q4HRT PRN Shortness Of Breath Amlodipine Besylate 10 mg 01/01/22 19:00 01/02/22 10:10 Amlodipine 10 Mg Tab PO Not Given QDAY MARIAH Arformoterol Tartrate 15 mcg 01/01/22 11:00 01/02/22 09:09 Arformoterol 15 Mcg/2 Ml Nebu IH 15 mcg Q12HRT MARIAH Administration Budesonide 0.5 mg 01/01/22 11:00 01/02/22 09:10 Budesonide 0.5 Mg/2 Ml Nebu IH 0.5 mg Q12HRT MARIAH Administration Famotidine 20 mg 01/01/22 10:00 01/02/22 10:10 Famotidine 20 Mg Tab PO Not Given BID MARIAH Heparin Sodium (Porcine) 5,000 unit 01/01/22 10:00 01/02/22 10:10 Heparin 5,000 Unit/1 Ml Vial SUB-Q Not Given Q12HR [facility] Hydralazine HCl 10 mg 01/01/22 18:52 Hydralazine 20 Mg/1 Ml Inj IV Q4H PRN Blood Pressure Hydromorphone HCl 0.5 mg 12/31/21 22:19 01/01/22 00:07 Hydromorphone 0.5 Mg/0.5 Ml Inj IV 0.5 mg Q3H PRN Administration Pain , Severe (7-10) Levofloxacin/Dextrose 750 mg in 150 mls @ 100 mls/hr 01/01/22 10:00 01/02/22 10:09 Levaquin 750mg/150ml IV 01/05/22 11:29 100 mls/hr Q24HR MARIAH Administration Protocol Ipratropium [place] 0.5 mg 01/02/22 09:00 01/02/22 09:10 Ipratropium 0.02% Nebu 2.5 Ml IH Not Given Q4HRT [facility] Lisinopril 40 mg 01/01/22 19:00 01/02/22 10:11 Lisinopril 40 Mg Tab PO Not Given QDAY [facility] Methylprednisolone Sodium Succinate 60 mg 12/31/21 23:30 01/02/22 05:20 Methylprednisolone Sod Succinate 125 Mg/2 Ml Inj IV 60 mg Q8HR [facility] Administration Metoclopramide HCl 10 mg 12/31/21 23:30 Metoclopramide 10 Mg/2 Ml Inj IV Q6H PRN Nausea And Vomiting Montelukast Sodium 10 mg 01/01/22 22:00 01/01/22 21:27 Montelukast 10 Mg Tab PO 10 mg QHS MARIAH Administration Ondansetron HCl 4 mg 12/31/21 23:30 01/01/22 00:08 Ondansetron 4 Mg/2 Ml Inj IV 4 mg Q8H PRN Administration Nausea And Vomiting Oxycodone/Acetaminophen 1 tab 12/31/21 23:30 Oxycodone /Acetaminophen 5-325mg Tab PO Q6H PRN Pain, Moderate (4-6) Sodium Chloride 10 ml 01/01/22 10:00 01/02/22 10:09 Sodium Chloride 0.9% 10 Ml Flush Syringe IV 10 ml BID MARIAH Administration Sodium Chloride 10 ml 12/31/21 22:19 01/01/22 05:26 Sodium Chloride 0.9% 10 Ml Flush Syringe IV 10 ml PRN PRN Administration LINE FLUSH
[2022-01-02] MEDS ORDERED: ALBUTEROL 2.5 MG/3 ML NEBU IH PRN (12:00)
[2022-01-02] MEDS: MONTELUKAST 10 MG TAB PO SCH (21:45)
[2022-01-03] MEDS: IPRATROPIUM 0.02% NEBU 2.5 ML IH SCH ×3 (02:15→08:55)
[2022-01-03] MEDS: methylPREDNISolone Sod Succinate 125 MG/2 ML INJ IV SCH ×3 (07:20→21:50)
--- NOTE | 2022-01-03 08:08 | Progress Note ---
Assessment and Plan Assessment and plan: History of present illness: 56-year-old female with a history of asthma and hyper tension comes in for s evere wheezing shortness of breath for the last 24 hours. Patient uses her home nebulizer treatments but with no relief. In the emergency room patient was saturating around 86%. With 3 to 5 L of nasal cannula oxygen patient's saturations improved to 95%. Patient received nebulizer treatments. No fever or chills. During my examination patient states that she has some relief and wanted to go home. Patient's wheezing was less compared to the time of admission. When the oxygen was removed she desaturated again to 86%. Patient had to be convinced to stay in the hospital for more breathing treatments steroids and antibiotics. Son was at the bedside. Hospital Course: 01/01: Pulmonary consultation placed, discussed case with Dr. Lloyd. D- dimer/LE doppler US ordered to R/o DVT/PE. Continue therapy outlined below for asthma exacerbation. anticipate d/c in next 24-48 hrs if patient demonstrates improvement. 01/02: Appears fatigued. Ordered PT for pulmonary rehabilitation as well as home O2 evaluation. Currently requiring 10l/min on salter nc. suspect pt is tachycardic due to albuterol. albuterol d/c, started on levalbuterol. continue steroids, inhaler therapy. Will follow pulmonary recommendations. 01/03: Continued shortness of breath. on 10l/min salter this AM. will follow pulmonary recommendations. will attempt to d/c tomorrow if sympomology improved. will likely need home o2. cm consultation placed for home o2. will follow pt recommendations. Assessment and Plan: #Acute hypoxic respiratory failure -Desaturated to 86% on room air in the emergency department. Patient was placed on nasal cannula currently at 3 L/min -D-dimer and Doppler ultrasound of lower extremity pending Chest x-ray: Mild cardiomegaly and central pulmonary venous congestion but no evidence of CHF DuoNeb, budesonide, Brovana Montelukast Solu-Medrol IV -Currently on Levaquin, doubt infectious etiology. can likely d/c tomorrow. Pulmonary consultation #Asthma exacerbation -Management as above #Essential hypertension -As needed hydralazine #Hyperglycemia -Sliding scale insulin Hemoglobin A1c ordered Worsened by steroid likely #Morbid Obesity + 15 min preventative health counseling on for balanced diet /regular exercise. #Advance care planning Disease education conducted, care plan discussed, diagnoses discussed, prognosis discussed, patient is full code, patient acknowledges understanding and agree with care plan, +30 minutes. History Interval history: states that she is feeling better. on 10l/min salter nc. able to ambulate from window to room door. Encouraged patient to ambulate under care staff supervision. Hospitalist Physical - Physical exam Narrative exam: Physical Exam: VITAL SIGNS: Reviewed. GENERAL: The patient appears normally developed, Vital signs as documented. Mild respiratory distress. Currently on 10 l/min salter nc HEAD: No signs of head trauma. EYES: Pupils are equal. Extraocular motions intact. EARS: Hearing grossly intact. MOUTH: Oropharynx is normal. NECK: No adenopathy, no JVD. CHEST: Bilateral wheezes throughout lung lassiter. Persisting, minimal improvem ent. CARDIAC: Regular rate and rhythm. S1 and S2, without murmurs, gallops, or rubs. VASCULAR: No Edema. Peripheral pulses normal and equal in all extremities. ABDOMEN: Soft, non tender and non distended. No rebound or guarding, and no masses palpated. Bowel Sounds normal. MUSCULOSKELETAL: Good range of motion of all major joints. Extremities without clubbing, cyanosis or edema. NEUROLOGIC EXAM: Alert and oriented x 4. no focal sensory or strength deficits. PSYCHIATRIC: Mood normal. SKIN: detail exam as documented in skin assessment - Constitutional Vitals: Temp Pulse Resp BP Pulse Ox 97.6 F 101 H 20 150/84 100 01/02/22 22:37 01/02/22 22:37 01/02/22 23:00 01/02/22 22:37 01/02/22 23:23 General appearance: Present: severe distress, well-nourished HEART Score - HEART Score Troponin: Troponin T < 0.010 ng/mL (0.00-0.029) 12/31/21 14:14 Results - Labs CBC & Chem 7: 01/01/22 05:35 01/01/22 05:35 Labs: Laboratory Last Values WBC 9.6 K/mm3 (4.5-11.0) 01/01/22 05:35 RBC 4.98 M/mm3 (3.65-5.03) 01/01/22 05:35 Hgb 13.3 gm/dl (10.1-14.3) 01/01/22 05:35 Hct 42.5 % (30.3-42.9) 01/01/22 05:35 MCV 85 fl (79-97) 01/01/22 05:35 MCH 27 pg (28-32) L 01/01/22 05:35 MCHC 31 % (30-34) 01/01/22 05:35 RDW 16.4 % (13.2-15.2) H 01/01/22 05:35 Plt Count 293 K/mm3 (140-440) 01/01/22 05:35 Lymph % (Auto) 8.9 % (13.4-35.0) L 12/31/21 14:14 Arthur % (Auto) 8.0 % (0.0-7.3) H 12/31/21 14:14 Eos % (Auto) 3.3 % (0.0-4.3) 12/31/21 14:14 Baso % (Auto) 0.9 % (0.0-1.8) 12/31/21 14:14 Lymph # (Auto) 0.8 K/mm3 (1.2-5.4) L 12/31/21 14:14 Arthur # (Auto) 0.7 K/mm3 (0.0-0.8) 12/31/21 14:14 Eos # (Auto) 0.3 K/mm3 (0.0-0.4) 12/31/21 14:14 Baso # (Auto) 0.1 K/mm3 (0.0-0.1) 12/31/21 14:14 Add Manual Diff Complete 01/01/22 05:35 Total Counted 100 01/01/22 05:35 Seg Neutrophils % Information Systems Security Analyst 01/01/22 05:35 Seg Neuts % (Manual) 99.0 % (40.0-70.0) H 01/01/22 05:35 Band Neutrophils % 0 % 01/01/22 05:35 Lymphocytes % (Manual) 1.0 % (13.4-35.0) L 01/01/22 05:35 Reactive Lymphs % (Man) 0 % 01/01/22 05:35 Monocytes % (Manual) 0 % (0.0-7.3) 01/01/22 05:35 Eosinophils % (Manual) 0 % (0.0-4.3) 01/01/22 05:35 Basophils % (Manual) 0 % (0.0-1.8) 01/01/22 05:35 Metamyelocytes % 0 % 01/01/22 05:35 Myelocytes % 0 % 01/01/22 05:35 Promyelocytes % 0 % 01/01/22 05:35 Blast Cells % 0 % 01/01/22 05:35 Nucleated RBC % Not Reportable 01/01/22 05:35 Seg Neutrophils # 7.2 K/mm3 (1.8-7.7) 12/31/21 14:14 Seg Neutrophils # Man 9.5 K/mm3 (1.8-7.7) H 01/01/22 05:35 Band Neutrophils # 0.0 K/mm3 01/01/22 05:35 Lymphocytes # (Manual) 0.1 K/mm3 (1.2-5.4) L 01/01/22 05:35 Abs React Lymphs (Man) 0.0 K/mm3 01/01/22 05:35 Monocytes # (Manual) 0.0 K/mm3 (0.0-0.8) 01/01/22 05:35 Eosinophils # (Manual) 0.0 K/mm3 (0.0-0.4) 01/01/22 05:35 Basophils # (Manual) 0.0 K/mm3 (0.0-0.1) 01/01/22 05:35 Metamyelocytes # 0.0 K/mm3 01/01/22 05:35 Myelocytes # 0.0 K/mm3 01/01/22 05:35 Promyelocytes # 0.0 K/mm3 01/01/22 05:35 Blast Cells # 0.0 K/mm3 01/01/22 05:35 WBC Morphology Not Reportable 01/01/22 05:35 Hypersegmented Neuts Not Reportable 01/01/22 05:35 Hyposegmented Neuts Not Reportable 01/01/22 05:35 Hypogranular Neuts Not Reportable 01/01/22 05:35 Smudge Cells Not Reportable 01/01/22 05:35 Toxic Granulation Not Reportable 01/01/22 05:35 Toxic Vacuolation Not Reportable 01/01/22 05:35 Dohle Bodies Not Reportable 01/01/22 05:35 Pelger-Huet Anomaly Not Reportable 01/01/22 05:35 Gianfranco Rods Not Reportable 01/01/22 05:35 Platelet Estimate Consistent w auto 01/01/22 05:35 Clumped Platelets Not Reportable 01/01/22 05:35 Plt Clumps, EDTA Not Reportable 01/01/22 05:35 Large Platelets Not Reportable 01/01/22 05:35 Giant Platelets Not Reportable 01/01/22 05:35 Platelet Satelliting Not Reportable 01/01/22 05:35 Plt Morphology Comment Not Reportable 01/01/22 05:35 RBC Morphology Normal 01/01/22 05:35 Dimorphic RBCs Not Reportable 01/01/22 05:35 Polychromasia Not Reportable 01/01/22 05:35 Hypochromasia Not Reportable 01/01/22 05:35 Poikilocytosis Not Reportable 01/01/22 05:35 Anisocytosis Not Reportable 01/01/22 05:35 Microcytosis Not Reportable 01/01/22 05:35 Macrocytosis Not Reportable 01/01/22 05:35 Spherocytes Not Reportable 01/01/22 05:35 Pappenheimer Bodies Not Reportable 01/01/22 05:35 Sickle Cells Not Reportable 01/01/22 05:35 Target Cells Not Reportable 01/01/22 05:35 Tear Drop Cells Not Reportable 01/01/22 05:35 Ovalocytes Not Reportable 01/01/22 05:35 Helmet Cells Not Reportable 01/01/22 05:35 [place] Bodies Not Reportable 01/01/22 05:35 [place] Rings Not Reportable 01/01/22 05:35 [place] Cells Not Reportable 01/01/22 05:35 Bite Cells Not Reportable 01/01/22 05:35 Crenated Cell Not Reportable 01/01/22 05:35 Elliptocytes Not Reportable 01/01/22 05:35 Acanthocytes (Spur) Not Reportable 01/01/22 05:35 Rouleaux Not Reportable 01/01/22 05:35 Hemoglobin C Crystals Not Reportable 01/01/22 05:35 Schistocytes Not Reportable 01/01/22 05:35 Malaria parasites Not Reportable 01/01/22 05:35 Zan Bodies Not Reportable 01/01/22 05:35 Hem Pathologist Commnt No 01/01/22 05:35 D-Dimer 397.42 ng/mlDDU (0-234) H 01/01/22 13:23 ABG pH 7.330 pH Units (7.350-7.450) L 12/31/21 14:39 ABG pCO2 63.7 mm Hg 12/31/21 14:39 ABG pO2 78.1 mm Hg (80.0-90.0) L 12/31/21 14:39 ABG HCO3 32.8 mmol/L (20.0-26.0) H 12/31/21 14:39 ABG O2 Saturation 95.2 % (95.0-99.0) 12/31/21 14:39 ABG O2 Content 18.1 (0.0-44) 12/31/21 14:39 ABG Base Excess 4.9 mmol/L (-2.0-3.0) H 12/31/21 14:39 ABG Hemoglobin 13.9 gm/dl (12.0-16.0) 12/31/21 14:39 ABG Carboxyhemoglobin 1.8 % (0.0-5.0) 12/31/21 14:39 ABG Methemoglobin 0.5 % (0.0-1.5) 12/31/21 14:39 Oxyhemoglobin 93.0 % (95.0-99.0) L 12/31/21 14:39 FiO2 45 % 12/31/21 14:39 Sodium 139 mmol/L (137-145) 01/01/22 05:35 Potassium 4.6 mmol/L (3.6-5.0) 01/01/22 05:35 Chloride 95.4 mmol/L (98-107) L 01/01/22 05:35 Carbon Dioxide 32 mmol/L (22-30) H 01/01/22 05:35 Anion Gap 16 mmol/L 01/01/22 05:35 BUN 12 mg/dL (7-17) 01/01/22 05:35 Creatinine 0.6 mg/dL (0.6-1.2) 01/01/22 05:35 Estimated GFR > 60 ml/min 01/01/22 05:35 BUN/Creatinine Ratio 20 % 01/01/22 05:35 Glucose 167 mg/dL (65-100) H 01/01/22 05:35 Calcium 9.8 mg/dL (8.4-10.2) 01/01/22 05:35 Total Bilirubin 0.60 mg/dL (0.1-1.2) 01/01/22 05:35 AST 14 units/L (5-40) 01/01/22 05:35 ALT 15 units/L (7-56) 01/01/22 05:35 Alkaline Phosphatase 145 units/L (35-129) H 01/01/22 05:35 Troponin T < 0.010 ng/mL (0.00-0.029) 12/31/21 14:14 NT-Pro-B Natriuret Pep 79.88 pg/mL (0-900) 12/31/21 14:14 Total Protein 9.1 g/dL (6.3-8.2) H 01/01/22 05:35 Albumin 4.3 g/dL (3.9-5) 01/01/22 05:35 Albumin/Globulin Ratio 0.9 % 01/01/22 05:35 Torrez/IV: Voiding Method Toilet Active Medications - Current Medications Current Medications: Generic Name Dose Route Start Last Admin Trade Name Freq PRN Reason Stop Dose Admin Acetaminophen 650 mg 12/31/21 23:30 Acetaminophen 325 Mg Tab PO Q4H PRN Pain MILD(1-3)/Fever >100.5/WEBB Albuterol 1.25 mg 01/02/22 12:00 Albuterol 2.5 Mg/3 Ml Nebu IH Q4HRT PRN Shortness Of Breath Amlodipine Besylate 10 mg 01/01/22 19:00 01/02/22 10:10 Amlodipine 10 Mg Tab PO Not Given QDAY MARIAH Arformoterol Tartrate 15 mcg 01/01/22 11:00 01/02/22 20:09 Arformoterol 15 Mcg/2 Ml Nebu IH 15 mcg Q12HRT MARIAH Administration Budesonide 0.5 mg 01/01/22 11:00 01/02/22 20:09 Budesonide 0.5 Mg/2 Ml Nebu IH 0.5 mg Q12HRT MARIAH Administration Famotidine 20 mg 01/01/22 10:00 05/20/22 21:45 Famotidine 20 Mg Tab PO 20 mg BID MARIAH Administration Heparin Sodium (Porcine) 5,000 unit 01/01/22 10:00 01/02/22 21:46 Heparin 5,000 Unit/1 Ml Vial SUB-Q 5,000 unit Q12HR MARIAH Administration Hydralazine HCl 10 mg 01/01/22 18:52 Hydralazine 20 Mg/1 Ml Inj IV Q4H PRN Blood Pressure Hydromorphone HCl 0.5 mg 12/31/21 22:19 01/01/22 00:07 Hydromorphone 0.5 Mg/0.5 Ml Inj IV 0.5 mg Q3H PRN Administration Pain , Severe (7-10) Levofloxacin/Dextrose 750 mg in 150 mls @ 100 mls/hr 01/01/22 10:00 01/02/22 10:09 Levaquin 750mg/150ml IV 01/05/22 11:29 100 mls/hr Q24HR MARIAH Administration Protocol Ipratropium [place] 0.5 mg 01/02/22 09:00 01/03/22 04:41 Ipratropium 0.02% Nebu 2.5 Ml IH Not Given Q4HRT [facility] Lisinopril 40 mg 01/01/22 19:00 01/02/22 10:11 Lisinopril 40 Mg Tab PO Not Given QDAY [facility] Methylprednisolone Sodium Succinate 60 mg 12/31/21 23:30 01/02/22 21:47 Methylprednisolone Sod Succinate 125 Mg/2 Ml Inj IV 60 mg Q8HR [facility] Administration Metoclopramide HCl 10 mg 12/31/21 23:30 Metoclopramide 10 Mg/2 Ml Inj IV Q6H PRN Nausea And Vomiting Montelukast Sodium 10 mg 01/01/22 22:00 01/02/22 21:45 Montelukast 10 Mg Tab PO 10 mg QHS [facility] Administration Ondansetron HCl 4 mg 12/31/21 23:30 01/01/22 00:08 Ondansetron 4 Mg/2 Ml Inj IV 4 mg Q8H PRN Administration Nausea And Vomiting Oxycodone/Acetaminophen 1 tab 12/31/21 23:30 01/02/22 21:51 Oxycodone /Acetaminophen 5-325mg Tab PO 1 tab Q6H PRN Administration Pain, Moderate (4-6) Sodium Chloride 10 ml 01/01/22 10:00 01/02/22 21:56 Sodium Chloride 0.9% 10 Ml Flush Syringe IV 10 ml BID MARIAH Administration Sodium Chloride 10 ml 12/31/21 22:19 01/01/22 05:26 Sodium Chloride 0.9% 10 Ml Flush Syringe IV 10 ml PRN PRN Administration LINE FLUSH
[2022-01-03] MEDS: BUDESONIDE 0.5 MG/2 ML NEBU IH SCH ×2 (08:54→19:51)
[2022-01-03] MEDS: ARFORMOTEROL 15 MCG/2 ML NEBU IH SCH ×2 (08:55→19:52)
[2022-01-03] MEDS: FAMOTIDINE 20 MG TAB PO SCH ×2 (09:43→21:50)
[2022-01-03] MEDS: HEPARIN 5,000 UNIT/1 ML VIAL SUB-Q SCH ×2 (09:48→21:51)
[2022-01-03] MEDS ORDERED: ALBUTEROL 2.5 MG/3 ML NEBU IH PRN (10:00)
[2022-01-03] MEDS: amLODIPine 10 MG TAB PO SCH (11:20)
[2022-01-03] MEDS: LISINOPRIL 40 MG TAB PO SCH (11:20)
--- NOTE | 2022-01-03 13:39 | Progress Note ---
Assessment and Plan 56-year-old female with a history of asthma and hyper tension comes in for severe wheezing shortness of breath for the last 24 hours. Patient uses her home nebulizer treatments but with no relief. In the emergency room patient was saturating around 86%. With 3 to 5 L of nasal cannula oxygen patient's saturations improved to 95%. Patient received nebulizer treatments. No fever or chills. Patient states that she has some relief and wanted to go home. Patient's wheezing was less compared to the time of admission. When the oxygen was removed she desaturated again to 86%. Patient convinced to stay in the hospital for more breathing treatments steroids and antibiotics. Patient has history of Hypertension,Asthma, Anemia. Patient has history of sleep apnea. Not using CPAP now. Patient has no history of smoking, alcohol or drug abuse. 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 Patient has no known drug allergies. Patient awake. Sitting up by the side of the bed. Still on High flow O2. O2 saturation 94%. Complaining shortness of breath even for slight exertion. ABG on FIO2 40%. ABG pH 7.330 pH Units (7.350-7.450) L 12/31/21 14:39 ABG pCO2 63.7 mm Hg 12/31/21 14:39 ABG pO2 78.1 mm Hg (80.0-90.0) L 12/31/21 14:39 ABG O2 Saturation 95.2 % (95.0-99.0) 12/31/21 14:39 Patient is candidate for home O2. Recommend to repeat ABGs on room air before discharge. Recommend place her on BIPAP 20/10, rate 16, FIO2 45% especially during sleep . If patient having more shortness of breath or having any altered mental status, recommend to transfer to ICU or telemetry. Patient afebrile. No leukocytosis. Blood pressure 149/94, pulse 124, respirations 24. Chest xray done 12/31/21 reported Mild cardiomegaly and central pulmonary venous congestion but no evidence for CHF. Venous doppler studies of both legs 01/01/22 reported no sonographic evidence of DVT Patient is on I/V solumedrol, Brovanna/Budesonide aerosol treatments , Albutrrol/atrovent aerosol treatments prn for shortness of breath, Levaquin, S/C Heparin, Famotidine. I spent critical care time of 35 minutes, obtaining history, review the chart, Examine the patient, review lab results, review chest xray, talking to nursing staff, respiratory therapy and work up plan of treatment in this critically ill patient with acute hypercapnic and hypoxic respiratory failure. - Patient Problems (1) Acute respiratory failure with hypoxia and hypercapnia Current Visit: No Status: Acute Plan to address problem: Patient is presently on High flow O2 10 litres. Recommend BIPAP 20/10, rate 16, FIO2 45% especially during sleep Continue I/V solumedrol. Continue albuterol/atrovent aerosol treatments. Continue S/C Heparin Continue famotidine. Continue Levaquin. (2) Asthma exacerbation Current Visit: No Status: Acute Qualifiers: Asthma severity: severe Plan to address problem: Patient is presently on High flow O2 10 litres. Recommend BIPAP 20/10, rate 16, FIO2 45% especially during sleep Continue I/V solumedrol. Continue albuterol/atrovent aerosol treatments. Continue S/C Heparin Continue famotidine. Continue Levaquin. (3) Hypertension Current Visit: No Status: Chronic Qualifiers: Hypertension type: primary hypertension Qualified Code(s): I10 - Essential (primary) hypertension Plan to address problem: Management as per primary care. (4) Morbid obesity with BMI of 40.0-44.9, adult Current Visit: No Status: Acute Plan to address problem: Couseled to loose weight. Recommend dietary consultation for weight reduction diet. (5) Sleep apnea in adult Current Visit: No Status: Acute Plan to address problem: Recommend to place her on BIPAP 20/10, rate 16, FIO2 45% during night time. Recommend to loose weight. Maintain sleep hygiene. Recommend not to drive or operate heavy equipment with sleepiness. Avoid alcohol, sedatives and narcotics. (6) Morbid obesity with alveolar hypoventilation Current Visit: No Status: Acute Plan to address problem: ABGs on room air during day time. BIPAP 20/10, rate 16, FIO2 45%. Recommend to loose weight. Maintain sleep hygiene. Recommend not to drive or operate heavy equipment with sleepiness. Avoid alcohol, sedatives and narcotics. ABGs on room air during day time. Subjective Date of service: 01/03/22 Interval history: 56-year-old female with a history of asthma and hyper tension comes in for severe wheezing shortness of breath for the last 24 hours. Patient uses her home nebulizer treatments but with no relief. In the emergency room patient was saturating around 86%. With 3 to 5 L of nasal cannula oxygen patient's saturations improved to 95%. Patient received nebulizer treatments. No fever or chills. Patient states that she has some relief and wanted to go home. Rosangela mitchell's wheezing was less compared to the time of admission. When the oxygen was removed she desaturated again to 86%. Patient convinced to stay in the hospital for more breathing treatments steroids and antibiotics. Patient has history of Hypertension,Asthma, Anemia. Patient has history of sleep apnea. Not using CPAP now. Patient has no history of smoking, alcohol or drug abuse. 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 Patient has no known drug allergies. Patient awake. Sitting up by the side of the bed. Still on High flow O2. O2 saturation 94%. Complaining shortness of breath even for slight exertion. ABG on FIO2 40%. ABG pH 7.330 pH Units (7.350-7.450) L 12/31/21 14:39 ABG pCO2 63.7 mm Hg 12/31/21 14:39 ABG pO2 78.1 mm Hg (80.0-90.0) L 12/31/21 14:39 ABG O2 Saturation 95.2 % (95.0-99.0) 12/31/21 14:39 Patient is candidate for home O2. Recommend to repeat ABGs on room air before discharge. Recommend place her on BIPAP 20/10, rate 16, FIO2 45% especially during sleep . If patient having more shortness of breath or having any altered mental status, recommend to transfer to ICU or telemetry. Patient afebrile. No leukocytosis. Blood pressure 149/94, pulse 124, respirations 24. Chest xray done 12/31/21 reported Mild cardiomegaly and central pulmonary venous congestion but no evidence for CHF. Venous doppler studies of both legs 01/01/22 reported no sonographic evidence of DVT. Patient is on I/V solumedrol, Brovanna/Budesonide aerosol treatments , Albutrrol/atrovent aerosol treatments prn for shortness of breath, Levaquin, S/C Heparin, Famotidine. Objective Vital Signs - 12hr 01/03/22 01/03/22 01/03/22 05:32 08:53 08:55 Temperature 97.6 F Pulse Rate 94 H Pulse Rate [ 94 H Bilateral] Respiratory 18 Rate Respiratory 20 Rate [Bilateral ] Blood Pressure 142/78 O2 Sat by Pulse 98 96 Oximetry 01/03/22 01/03/22 09:15 11:00 Temperature 98.4 F Pulse Rate 124 H Pulse Rate [ Bilateral] Respiratory 24 Rate Respiratory Rate [Bilateral ] Blood Pressure 149/94 O2 Sat by Pulse 96 83 L Oximetry Constitutional: alert, appears uncomfortable, other (Appears tired.) Eyes: non-icteric ENT: oropharynx moist Neck: supple, no lymphadenopathy Effort: mildly labored Ascultation: Bilateral: diminished breath sounds (at the bases.), wheezes Cardiovascular: regular rate and rhythm Gastrointestinal: normoactive bowel sounds, soft, non-tender Integumentary: normal Extremities: no cyanosis, no edema Neurologic: normal mental status, non-focal exam, pupils equal and round, CN II- XII normal Psychiatric: mood appropriate, affect normal CBC and BMP: 01/01/22 05:35 01/01/22 05:35 ABG, PT/INR, D-dimer: ABG ABG pH 7.330 pH Units (7.350-7.450) L 12/31/21 14:39 ABG pCO2 63.7 mm Hg 12/31/21 14:39 ABG pO2 78.1 mm Hg (80.0-90.0) L 12/31/21 14:39 ABG O2 Saturation 95.2 % (95.0-99.0) 12/31/21 14:39 PT/INR, D-dimer D-Dimer 397.42 ng/mlDDU (0-234) H 01/01/22 13:23 Abnormal lab findings: Abnormal Labs 12/31/21 12/31/21 12/31/21 14:14 14:14 14:39 MCH 26 L RDW 16.3 H Lymph % (Auto) 8.9 L [place] % (Auto) 8.0 H Lymph # (Auto) 0.8 L Seg Neutrophils % 78.9 H Seg Neuts % (Manual) Lymphocytes % (Manual) Seg Neutrophils # Man Lymphocytes # (Manual) D-Dimer ABG pH 7.330 L ABG pO2 78.1 L ABG HCO3 32.8 H ABG Base Excess 4.9 H Oxyhemoglobin 93.0 L Chloride 96.9 L Carbon Dioxide Glucose 114 H Alkaline Phosphatase 135 H Total Protein 01/01/22 01/01/22 01/01/22 05:35 05:35 13:23 MCH 27 L RDW 16.4 H Lymph % (Auto) [place] % (Auto) Lymph # (Auto) Seg Neutrophils % Seg Neuts % (Manual) 99.0 H Lymphocytes % (Manual) 1.0 L Seg Neutrophils # Man 9.5 H Lymphocytes # (Manual) 0.1 L D-Dimer 397.42 H ABG pH ABG pO2 ABG HCO3 ABG Base Excess Oxyhemoglobin Chloride 95.4 L Carbon Dioxide 32 H Glucose 167 H Alkaline Phosphatase 145 H Total Protein 9.1 H Prior PFT's, U/S of legs: report reviewed, image reviewed Additional Studies: DUPLEX DOPPLER LOWER EXTREMITY VEINS, BILATERAL 01/01/22 INDICATION: Bilateral lower extremity swelling. TECHNIQUE: Duplex doppler imaging was performed through the veins of both lower extremities using venous compression and other maneuvers. COMPARISON: No relevant prior imaging study available. FINDINGS: Right Common femoral vein: Negative. Right Superficial femoral vein: Negative. Right Popliteal vein: Negative. Right Calf veins: Negative. Left Common femoral vein: Negative. Left Superficial femoral vein: Negative. Left Popliteal vein: Negative. Left Calf veins: Negative. Additional findings: There is nonspecific subcutaneous edema bilaterally.. IMPRESSION: No sonographic evidence for DVT in either lower extremity.
[2022-01-03] MEDS: IPRATROPIUM/ALBUTEROL SULFATE 3 ML AMPUL.NEB IH SCH ×2 (14:21→19:51)
[2022-01-03] MEDS ORDERED: IPRATROPIUM 0.02% NEBU 2.5 ML IH ONE (14:28)
[2022-01-03] MEDS: MONTELUKAST 10 MG TAB PO SCH (21:50)
[2022-01-04] MEDS: methylPREDNISolone Sod Succinate 125 MG/2 ML INJ IV SCH ×3 (06:44→21:40)
--- NOTE | 2022-01-04 07:49 | Progress Note ---
Assessment and Plan Assessment and plan: History of present illness: 56-year-old female with a history of asthma and hyper tension comes in for severe wheezing shortness of breath for the last 24 hours. Patient uses her home nebulizer treatments but with no relief. In the emergency room patient was saturating around 86%. With 3 to 5 L of nasal cannula oxygen patient's saturations improved to 95%. Patient received nebulizer treatments. No fever or chills. During my examination patient states that she has some relief and wanted to go home. Patient's wheezing was less compared to the time of admission. When the oxygen was removed she desaturated again to 86%. Patient had to be convinced to stay in the hospital for more breathing treatments steroids and antibiotics. Son was at the bedside. Hospital Course: 01/01: Pulmonary consultation placed, discussed case with Dr. Lloyd. D-dimer /LE doppler US ordered to R/o DVT/PE. Continue therapy outlined below for asthma exacerbation. anticipate d/c in next 24-48 hrs if patient demonstrates improvement. 01/02: Appears fatigued. Ordered PT for pulmonary rehabilitation as well as home O2 evaluation. Currently requiring 10l/min on salter nc. suspect pt is tachycardic due to albuterol. albuterol d/c, started on levalbuterol. continue steroids, inhaler therapy. Will follow pulmonary recommendations. 01/03: Continued shortness of breath. on 10l/min salter this AM. will follow pulmonary recommendations. will attempt to d/c tomorrow if sympomology improved. will likely need home o2. cm consultation placed for home o2. will follow pt rec ommendations. 01/04: BIPAP qhs per pulmonary recommendations. Awaiting PT recommendations. Will work to aggressively lower O2 requirement. Currently on salter 10 l/min. CTA chest pending, R/o PE. Assessment and Plan: #Acute hypoxic respiratory failure #Asthma Exacerbation -Desaturated to 86% on room air in the emergency department. Currenlty on salter 10l/min - BIPAP qhs -D-dimer and Doppler ultrasound of lower extremity pending Chest x-ray: Mild cardiomegaly and central pulmonary venous congestion but no evidence of CHF DuoNeb, budesonide, Brovana Montelukast Solu-Medrol IV -Currently on Levaquin, doubt infectious etiology. can likely d/c tomorrow. Pulmonary consultation - CT Chest order, R/O PE. #Essential hypertension - Amlodipine 10 - lisinopril 40 po qdaily -As needed hydralazine #Hyperglycemia -Sliding scale insulin Hemoglobin A1c ordered Worsened by steroid likely #Morbid Obesity + 15 min preventative health counseling on for balanced diet /regular exercise. #Advance care planning Disease education conducted, care plan discussed, diagnoses discussed, prognosis discussed, patient is full code, patient acknowledges understanding and agree with care plan, +30 minutes. The high probability of a clinically significant, sudden or life threatening deterioration of the [pulmonary, neuro] system(s) required my full and direct attention, intervention and personal management. The aggregate critical care time was [60] minutes. This time is in addition to time spent performing reported procedures but includes the following: [x] Data Review and interpretation [x] Patient assessment and monitoring of vital signs [x] Documentation [x] Medication orders and management History Interval history: Patient going to CT for CTA chest. Hospitalist Physical - Physical exam Narrative exam: Physical Exam: VITAL SIGNS: Reviewed. GENERAL: The patient appears normally developed, Vital signs as documented. Mild respiratory distress. Currently on 10 l/min salter nc HEAD: No signs of head trauma. EYES: Pupils are equal. Extraocular motions intact. EARS: Hearing grossly intact. MOUTH: Oropharynx is normal. NECK: No adenopathy, no JVD. CHEST: Bilateral wheezes throughout lung lassiter. Persisting, minimal improvement. CARDIAC: Regular rate and rhythm. S1 and S2, without murmurs, gallops, or rub s. VASCULAR: No Edema. Peripheral pulses normal and equal in all extremities. ABDOMEN: Soft, non tender and non distended. No rebound or guarding, and no masses palpated. Bowel Sounds normal. MUSCULOSKELETAL: Good range of motion of all major joints. Extremities without clubbing, cyanosis or edema. NEUROLOGIC EXAM: Alert and oriented x 4. no focal sensory or strength deficits. PSYCHIATRIC: Mood normal. SKIN: detail exam as documented in skin assessment - Constitutional Vitals: Temp Pulse Resp BP Pulse Ox 98.6 F 100 H 18 169/111 93 01/04/22 04:55 01/04/22 04:55 01/04/22 04:55 01/04/22 04:55 01/04/22 04:55 General appearance: Present: severe distress, well-nourished HEART Score - HEART Score Troponin: Troponin T < 0.010 ng/mL (0.00-0.029) 12/31/21 14:14 Results - Labs CBC & Chem 7: 01/01/22 05:35 01/01/22 05:35 Labs: Laboratory Last Values WBC 9.6 K/mm3 (4.5-11.0) 01/01/22 05:35 RBC 4.98 M/mm3 (3.65-5.03) 01/01/22 05:35 Hgb 13.3 gm/dl (10.1-14.3) 01/01/22 05:35 Hct 42.5 % (30.3-42.9) 01/01/22 05:35 MCV 85 fl (79-97) 01/01/22 05:35 MCH 27 pg (28-32) L 01/01/22 05:35 MCHC 31 % (30-34) 01/01/22 05:35 RDW 16.4 % (13.2-15.2) H 01/01/22 05:35 Plt Count 293 K/mm3 (140-440) 01/01/22 05:35 Lymph % (Auto) 8.9 % (13.4-35.0) L 12/31/21 14:14 Haines % (Auto) 8.0 % (0.0-7.3) H 12/31/21 14:14 Eos % (Auto) 3.3 % (0.0-4.3) 12/31/21 14:14 Baso % (Auto) 0.9 % (0.0-1.8) 12/31/21 14:14 Lymph # (Auto) 0.8 K/mm3 (1.2-5.4) L 12/31/21 14:14 Haines # (Auto) 0.7 K/mm3 (0.0-0.8) 12/31/21 14:14 Eos # (Auto) 0.3 K/mm3 (0.0-0.4) 12/31/21 14:14 Baso # (Auto) 0.1 K/mm3 (0.0-0.1) 12/31/21 14:14 Add Manual Diff Complete 01/01/22 05:35 Total Counted 100 01/01/22 05:35 Seg Neutrophils % Fern Cutter 01/01/22 05:35 Seg Neuts % (Manual) 99.0 % (40.0-70.0) H 01/01/22 05:35 Band Neutrophils % 0 % 01/01/22 05:35 Lymphocytes % (Manual) 1.0 % (13.4-35.0) L 01/01/22 05:35 Reactive Lymphs % (Man) 0 % 01/01/22 05:35 Monocytes % (Manual) 0 % (0.0-7.3) 01/01/22 05:35 Eosinophils % (Manual) 0 % (0.0-4.3) 01/01/22 05:35 Basophils % (Manual) 0 % (0.0-1.8) 01/01/22 05:35 Metamyelocytes % 0 % 01/01/22 05:35 Myelocytes % 0 % 01/01/22 05:35 Promyelocytes % 0 % 01/01/22 05:35 Blast Cells % 0 % 01/01/22 05:35 Nucleated RBC % Not Reportable 01/01/22 05:35 Seg Neutrophils # 7.2 K/mm3 (1.8-7.7) 12/31/21 14:14 Seg Neutrophils # Man 9.5 K/mm3 (1.8-7.7) H 01/01/22 05:35 Band Neutrophils # 0.0 K/mm3 01/01/22 05:35 Lymphocytes # (Manual) 0.1 K/mm3 (1.2-5.4) L 01/01/22 05:35 Abs React Lymphs (Man) 0.0 K/mm3 01/01/22 05:35 Monocytes # (Manual) 0.0 K/mm3 (0.0-0.8) 01/01/22 05:35 Eosinophils # (Manual) 0.0 K/mm3 (0.0-0.4) 01/01/22 05:35 Basophils # (Manual) 0.0 K/mm3 (0.0-0.1) 01/01/22 05:35 Metamyelocytes # 0.0 K/mm3 01/01/22 05:35 Myelocytes # 0.0 K/mm3 01/01/22 05:35 Promyelocytes # 0.0 K/mm3 01/01/22 05:35 Blast Cells # 0.0 K/mm3 01/01/22 05:35 WBC Morphology Not Reportable 01/01/22 05:35 Hypersegmented Neuts Not Reportable 01/01/22 05:35 Hyposegmented Neuts Not Reportable 01/01/22 05:35 Hypogranular Neuts Not Reportable 01/01/22 05:35 Smudge Cells Not Reportable 01/01/22 05:35 Toxic Granulation Not Reportable 01/01/22 05:35 Toxic Vacuolation Not Reportable 01/01/22 05:35 Dohle Bodies Not Reportable 01/01/22 05:35 Pelger-Huet Anomaly Not Reportable 01/01/22 05:35 Gianfranco Rods Not Reportable 01/01/22 05:35 Platelet Estimate Consistent w auto 01/01/22 05:35 Clumped Platelets Not Reportable 01/01/22 05:35 Plt Clumps, EDTA Not Reportable 01/01/22 05:35 Large Platelets Not Reportable 01/01/22 05:35 Giant Platelets Not Reportable 01/01/22 05:35 Platelet Satelliting Not Reportable 01/01/22 05:35 Plt Morphology Comment Not Reportable 01/01/22 05:35 RBC Morphology Normal 01/01/22 05:35 Dimorphic RBCs Not Reportable 01/01/22 05:35 Polychromasia Not Reportable 01/01/22 05:35 Hypochromasia Not Reportable 01/01/22 05:35 Poikilocytosis Not Reportable 01/01/22 05:35 Anisocytosis Not Reportable 01/01/22 05:35 Microcytosis Not Reportable 01/01/22 05:35 Macrocytosis Not Reportable 01/01/22 05:35 Spherocytes Not Reportable 01/01/22 05:35 Pappenheimer Bodies Not Reportable 01/01/22 05:35 Sickle Cells Not Reportable 01/01/22 05:35 Target Cells Not Reportable 01/01/22 05:35 Tear Drop Cells Not Reportable 01/01/22 05:35 Ovalocytes Not Reportable 01/01/22 05:35 Helmet Cells Not Reportable 01/01/22 05:35 [place] Bodies Not Reportable 01/01/22 05:35 [place] Rings Not Reportable 01/01/22 05:35 Efren Cells Not Reportable 01/01/22 05:35 Bite Cells Not Reportable 01/01/22 05:35 Crenated Cell Not Reportable 01/01/22 05:35 Elliptocytes Not Reportable 01/01/22 05:35 Acanthocytes (Spur) Not Reportable 01/01/22 05:35 Rouleaux Not Reportable 01/01/22 05:35 Hemoglobin C Crystals Not Reportable 01/01/22 05:35 Schistocytes Not Reportable 01/01/22 05:35 Malaria parasites Not Reportable 01/01/22 05:35 Zan Bodies Not Reportable 01/01/22 05:35 Hem Pathologist Commnt No 01/01/22 05:35 D-Dimer 397.42 ng/mlDDU (0-234) H 01/01/22 13:23 ABG pH 7.330 pH Units (7.350-7.450) L 12/31/21 14:39 ABG pCO2 63.7 mm Hg 12/31/21 14:39 ABG pO2 78.1 mm Hg (80.0-90.0) L 12/31/21 14:39 ABG HCO3 32.8 mmol/L (20.0-26.0) H 12/31/21 14:39 ABG O2 Saturation 95.2 % (95.0-99.0) 12/31/21 14:39 ABG O2 Content 18.1 (0.0-44) 12/31/21 14:39 ABG Base Excess 4.9 mmol/L (-2.0-3.0) H 12/31/21 14:39 ABG Hemoglobin 13.9 gm/dl (12.0-16.0) 12/31/21 14:39 ABG Carboxyhemoglobin 1.8 % (0.0-5.0) 12/31/21 14:39 ABG Methemoglobin 0.5 % (0.0-1.5) 12/31/21 14:39 Oxyhemoglobin 93.0 % (95.0-99.0) L 12/31/21 14:39 FiO2 45 % 12/31/21 14:39 Sodium 139 mmol/L (137-145) 01/01/22 05:35 Potassium 4.6 mmol/L (3.6-5.0) 01/01/22 05:35 Chloride 95.4 mmol/L (98-107) L 01/01/22 05:35 Carbon Dioxide 32 mmol/L (22-30) H 01/01/22 05:35 Anion Gap 16 mmol/L 01/01/22 05:35 BUN 12 mg/dL (7-17) 01/01/22 05:35 Creatinine 0.6 mg/dL (0.6-1.2) 01/01/22 05:35 Estimated GFR > 60 ml/min 01/01/22 05:35 BUN/Creatinine Ratio 20 % 01/01/22 05:35 Glucose 167 mg/dL (65-100) H 01/01/22 05:35 Calcium 9.8 mg/dL (8.4-10.2) 01/01/22 05:35 Total Bilirubin 0.60 mg/dL (0.1-1.2) 01/01/22 05:35 AST 14 units/L (5-40) 01/01/22 05:35 ALT 15 units/L (7-56) 01/01/22 05:35 Alkaline Phosphatase 145 units/L (35-129) H 01/01/22 05:35 Troponin T < 0.010 ng/mL (0.00-0.029) 12/31/21 14:14 NT-Pro-B Natriuret Pep 79.88 pg/mL (0-900) 12/31/21 14:14 Total Protein 9.1 g/dL (6.3-8.2) H 01/01/22 05:35 Albumin 4.3 g/dL (3.9-5) 01/01/22 05:35 Albumin/Globulin Ratio 0.9 % 01/01/22 05:35 Torrez/IV: Voiding Method External Female Catheter Active Medications - Current Medications Current Medications: Generic Name Dose Route Start Last Admin Trade Name Freq PRN Reason Stop Dose Admin Acetaminophen 650 mg 12/31/21 23:30 Acetaminophen 325 Mg Tab PO Q4H PRN Pain MILD(1-3)/Fever >100.5/WEBB Albuterol 2.5 mg 01/03/22 10:00 Albuterol 2.5 Mg/3 Ml Nebu IH Q4HRT PRN Shortness Of Breath Albuterol/Ipratropium 1 ampul 01/03/22 14:00 01/03/22 19:51 Ipratropium/Albuterol Sulfate 3 Ml Ampul.Neb IH 1 ampul TIDRT MARIAH Administration Amlodipine Besylate 10 mg 01/01/22 19:00 01/03/22 11:20 Amlodipine 10 Mg Tab PO 10 mg QDAY MARIAH Administration Arformoterol Tartrate 15 mcg 01/03/22 20:00 01/03/22 19:52 Arformoterol 15 Mcg/2 Ml Nebu IH 15 mcg Q12HRT MARIAH Administration Budesonide 0.5 mg 01/03/22 20:00 01/03/22 19:51 Budesonide 0.5 Mg/2 Ml Nebu IH 0.5 mg Q12HRT MARIAH Administration Famotidine 20 mg 01/01/22 10:00 01/03/22 21:50 Famotidine 20 Mg Tab PO 20 mg BID MARIAH Administration Heparin Sodium (Porcine) 5,000 unit 01/01/22 10:00 01/03/22 21:51 Heparin 5,000 Unit/1 Ml Vial SUB-Q 5,000 unit Q12HR MARIAH Administration Hydralazine HCl 10 mg 01/01/22 18:52 Hydralazine 20 Mg/1 Ml Inj IV Q4H PRN Blood Pressure Hydromorphone HCl 0.5 mg 12/31/21 22:19 01/01/22 00:07 Hydromorphone 0.5 Mg/0.5 Ml Inj IV 0.5 mg Q3H PRN Administration Pain , Severe (7-10) Levofloxacin 750 mg 01/04/22 10:00 Levofloxacin 750 Mg Tab PO 01/05/22 10:01 Q24H [facility] Protocol Lisinopril 40 mg 01/01/22 19:00 01/03/22 11:20 Lisinopril 40 Mg Tab PO 40 mg QDAY MARIAH Administration Methylprednisolone Sodium Succinate 60 mg 12/31/21 23:30 01/04/22 06:44 Methylprednisolone Sod Succinate 125 Mg/2 Ml Inj IV 60 mg Q8HR MARIAH Administration Metoclopramide HCl 10 mg 12/31/21 23:30 Metoclopramide 10 Mg/2 Ml Inj IV Q6H PRN Nausea And Vomiting Montelukast Sodium 10 mg 01/01/22 22:00 01/03/22 21:50 Montelukast 10 Mg Tab PO 10 mg QHS MARIAH Administration Ondansetron HCl 4 mg 12/31/21 23:30 01/01/22 00:08 Ondansetron 4 Mg/2 Ml Inj IV 4 mg Q8H PRN Administration Nausea And Vomiting Oxycodone/Acetaminophen 1 tab 12/31/21 23:30 01/02/22 21:51 Oxycodone /Acetaminophen 5-325mg Tab PO 1 tab Q6H PRN Administration Pain, Moderate (4-6) Sodium Chloride 10 ml 01/01/22 10:00 01/03/22 21:52 Sodium Chloride 0.9% 10 Ml Flush Syringe IV 10 ml BID MARIAH Administration Sodium Chloride 10 ml 12/31/21 22:19 01/01/22 05:26 Sodium Chloride 0.9% 10 Ml Flush Syringe IV 10 ml PRN PRN Administration LINE FLUSH
[2022-01-04] MEDS: ARFORMOTEROL 15 MCG/2 ML NEBU IH SCH ×2 (08:04→19:03)
[2022-01-04] MEDS: IPRATROPIUM/ALBUTEROL SULFATE 3 ML AMPUL.NEB IH SCH ×3 (08:05→19:03)
[2022-01-04] MEDS: BUDESONIDE 0.5 MG/2 ML NEBU IH SCH ×2 (08:05→19:03)
--- NOTE | 2022-01-04 12:29 | Cat Scan Report ---
CTA CHEST WITH IV CONTRAST INDICATION / CLINICAL INFORMATION: pulmonary embolism. Shortness of breath TECHNIQUE: Axial CT images were obtained through the chest after injection of 90 mL Omnipaque 350 IV contrast. 3 plane MIP and/or 3D reconstructions were produced. All CT scans at this location are performed using CT dose reduction for ALARA by means of automated exposure control. COMPARISON: Chest radiograph 12/31/2021, CT chest 01/29/2021 FINDINGS: PULMONARY ARTERIES: No pulmonary emboli. THORACIC AORTA: No significant abnormality. HEART: No significant abnormality. CORONARY ARTERIES: No significant calcification. PLEURA: No pleural effusion. No pneumothorax. LYMPH NODES: No significant adenopathy. LUNGS: There is reticulonodular interstitial disease throughout both lower lobes, slightly more preva lent throughout the right lower lobe. There is focal linear pulmonary opacity in the right lower lobe as well. Bilateral upper lobes and right middle lobe are grossly clear. The reticulonodular intersti tial disease retrospectively was present on the 01/29/[address] exam, within the right lung, but h as clearly increased in severity and is now present within the left lower lobe as well. ADDITIONAL FINDINGS: None. UPPER ABDOMEN: No acute findings. Hepatic steatosis, as noted on prior imaging exams. SKELETAL STRUCTURES: Moderate spondylitic changes are present throughout the mid and lower thoracic s pine. No acute significant osseous abnormality noted. IMPRESSION: 1. No CT evidence for pulmonary embolism. 2. Prominent reticulonodular interstitial disease is present throughout both lower lobes. This has pr ogressed since CT chest 01/29/2021. Additionally there is small area of focal consolidation within the right lower lobe as well. Differential diagnosis includes infectious versus inflammatory etiology. Signer Name: Isabelle Mccrary MD Signed: 01/04/2022 12:24 PM Workstation Name: [id number]
--- NOTE | 2022-01-04 13:17 | Progress Note ---
Assessment and Plan 56-year-old female with a history of asthma and hyper tension comes in for severe wheezing shortness of breath for the last 24 hours. Patient uses her home nebulizer treatments but with no relief. In the emergency room patient was saturating around 86%. With 3 to 5 L of nasal cannula oxygen patient's saturations improved to 95%. Patient received nebulizer treatments. No fever or chills. Patient states that she has some relief and wanted to go home. Patient's wheezing was less compared to the time of admission. When the oxygen was removed she desaturated again to 86%. Patient convinced to stay in the hospital for more breathing treatments steroids and antibiotics. Patient has history of Hypertension,Asthma, Anemia. Patient has history of sleep apnea. Not using CPAP now. Patient has no history of smoking, alcohol or drug abuse. 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 Patient has no known drug allergies. Patient awake. Sitting up by the side of the bed. Patient is on High flow O2 10 litres via nasal canula and . O2 saturation running 99%. Decreased O2 to 5 litres and O2 saturation running 96%. Still Complaining shortness of breath even for slight exertion and also O2 saturation dropping even with slight exertion. ABG on FIO2 40%. ABG pH 7.330 pH Units (7.350-7.450) L 12/31/21 14:39 ABG pCO2 63.7 mm Hg 12/31/21 14:39 ABG pO2 78.1 mm Hg (80.0-90.0) L 12/31/21 14:39 ABG O2 Saturation 95.2 % (95.0-99.0) 12/31/21 14:39 Patient is candidate for home O2. Recommend to repeat ABGs on room air before discharge. Recommend place her on BIPAP 20/10, rate 16, FIO2 45% especially during sleep . If patient having more shortness of breath or having any altered mental status, recommend to transfer to ICU or telemetry. Patient afebrile. No leukocytosis. Blood pressure 167/87, pulse 104, respirations 20. Chest xray done 12/31/21 reported Mild cardiomegaly and central pulmonary venous congestion but no evidence for CHF. Venous doppler studies of both legs 01/01/22 reported no sonographic evidence of DVT CTA of chest 01/04/[address] evidence for pulmonary embolism. Prominent reticulonodular interstitial disease is present throughout both lower lobes. This has progressed since CT chest 01/29/2021. Additionally there is small area of focal consolidation within the right lower lobe as well. Differential diagnosis includes infectious versus inflammatory etiology. Obtaining JESSICA level. Patient is on I/V solumedrol, Brovanna/Budesonide aerosol treatments , Albutrrol/atrovent aerosol treatments prn for shortness of breath, Levaquin, S/C Heparin, Famotidine. I spent critical care time of 35 minutes, obtaining history, review the chart, Examine the patient, review lab results, review chest xray, talking to nursing staff, respiratory therapy and work up plan of treatment in this critically ill patient with acute hypercapnic and hypoxic respiratory failure. - Patient Problems (1) Acute respiratory failure with hypoxia and hypercapnia Current Visit: No Status: Acute Plan to address problem: Patient is presently on High flow O2 10 litres. Decrease the O2 to 5 litres and keeping O2 saturation above 92%. Recommend BIPAP 20/10, rate 16, FIO2 45% especially during sleep Continue I/V solumedrol. Continue albuterol/atrovent aerosol treatments. Continue S/C Heparin Continue famotidine. Continue Levaquin. (2) Asthma exacerbation Current Visit: No Status: Acute Qualifiers: Asthma severity: severe Plan to address problem: Patient is presently on High flow O2 10 litres. Decrease the O2 to 5 litres and keeping O2 saturation above 92%. Recommend BIPAP 20/10, rate 16, FIO2 45% especially during sleep Continue I/V solumedrol. Continue albuterol/atrovent aerosol treatments. Continue S/C Heparin Continue famotidine. Continue Levaquin. (3) Hypertension Current Visit: No Status: Chronic Qualifiers: Hypertension type: primary hypertension Qualified Code(s): I10 - Essential (primary) hypertension Plan to address problem: Management as per primary care. (4) Morbid obesity with BMI of 40.0-44.9, adult Current Visit: No Status: Acute Plan to address problem: Counseled to loose weight. Recommend dietary consultation for weight reduction diet. (5) Sleep apnea in adult Current Visit: No Status: Acute Plan to address problem: Recommend to place her on BIPAP 20/10, rate 16, FIO2 45% during night time. Recommend to loose weight. Maintain sleep hygiene. Recommend not to drive or operate heavy equipment with sleepiness. Avoid alcohol, sedatives and narcotics. (6) Morbid obesity with alveolar hypoventilation Current Visit: No Status: Acute Plan to address problem: ABGs on room air during day time. BIPAP 20/10, rate 16, FIO2 45%. Recommend to loose weight. Maintain sleep hygiene. Recommend not to drive or operate heavy equipment with sleepiness. Avoid alcohol, sedatives and narcotics. ABGs on room air during day time. Subjective Date of service: 01/04/22 Interval history: 56-year-old female with a history of asthma and hyper tension comes in for severe wheezing shortness of breath for the last 24 hours. Patient uses her home nebulizer treatments but with no relief. In the emergency room patient was saturating around 86%. With 3 to 5 L of nasal cannula oxygen patient's saturations improved to 95%. Patient received nebulizer treatments. No fever or chills. Patient states that she has some relief and wanted to go home. Patient's wheezing was less compared to the time of admission. When the oxygen was removed she desaturated again to 86%. Patient convinced to stay in the hospital for more breathing treatments steroids and antibiotics. Patient has history of Hypertension,Asthma, Anemia. Patient has history of sleep apnea. Not using CPAP now. Patient has no history of smoking, alcohol or drug abuse. 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 P atient has no known drug allergies. Patient awake. Sitting up by the side of the bed. Patient is on High flow O2 10 litres via nasal canula and . O2 saturation running 99%. Decreased O2 to 5 litres and O2 saturation running 96%. Still Complaining shortness of breath even for slight exertion and also O2 saturation dropping even with slight exertion. ABG on FIO2 40%. ABG pH 7.330 pH Units (7.350-7.450) L 12/31/21 14:39 ABG pCO2 63.7 mm Hg 12/31/21 14:39 ABG pO2 78.1 mm Hg (80.0-90.0) L 12/31/21 14:39 ABG O2 Saturation 95.2 % (95.0-99.0) 12/31/21 14:39 Patient is candidate for home O2. Recommend to repeat ABGs on room air before discharge. Recommend place her on BIPAP 20/10, rate 16, FIO2 45% especially during sleep . If patient having more shortness of breath or having any altered mental status, recommend to transfer to ICU or telemetry. Patient afebrile. No leukocytosis. Blood pressure 167/87, pulse 104, respirations 20. Chest xray done 12/31/21 reported Mild cardiomegaly and central pulmonary venous congestion but no evidence for CHF. Venous doppler studies of both legs 01/01/22 reported no sonographic evidence of DVT CTA of chest 01/04/[address] evidence for pulmonary embolism. Prominent reticulonodular interstitial disease is present throughout both lower lobes. This has progressed since CT chest 01/29/2021. Additionally there is small area of focal consolidation within the right lower lobe as well. Differential diagnosis includes infectious versus inflammatory etiology. Obtaining JESSICA level. Patient is on I/V solumedrol, Brovanna/Budesonide aerosol treatments , Albutrrol/atrovent aerosol treatments prn for shortness of breath, Levaquin, S/C Heparin, Famotidine. . Objective Vital Signs - 12hr 01/04/22 01/04/22 01/04/22 01:43 02:49 04:55 Temperature 98.6 F Pulse Rate 94 H 100 H Pulse Rate [ Bilateral] Respiratory 21 17 18 Rate Respiratory Rate [Bilateral ] Blood Pressure 169/111 O2 Sat by Pulse 94 100 93 Oximetry 01/04/22 01/04/22 01/04/22 08:00 08:06 08:26 Temperature Pulse Rate Pulse Rate [ 104 H Bilateral] Respiratory Rate Respiratory 20 Rate [Bilateral ] Blood Pressure O2 Sat by Pulse 96 94 Oximetry 01/04/22 11:30 Temperature 97.9 F Pulse Rate 104 H Pulse Rate [ Bilateral] Respiratory 20 Rate Respiratory Rate [Bilateral ] Blood Pressure 167/89 O2 Sat by Pulse 96 Oximetry Constitutional: no acute distress, alert, other (Appears tired.) Eyes: non-icteric ENT: oropharynx moist Neck: supple, no lymphadenopathy Effort: mildly labored Ascultation: Bilateral: diminished breath sounds (at the bases.), wheezes Cardiovascular: regular rate and rhythm Gastrointestinal: normoactive bowel sounds, soft, non-tender Integumentary: normal Extremities: no cyanosis, no edema Neurologic: normal mental status, non-focal exam, pupils equal and round, CN II- XII normal Psychiatric: mood appropriate, affect normal CBC and BMP: 01/01/22 05:35 01/01/22 05:35 ABG, PT/INR, D-dimer: ABG ABG pH 7.330 pH Units (7.350-7.450) L 12/31/21 14:39 ABG pCO2 63.7 mm Hg 12/31/21 14:39 ABG pO2 78.1 mm Hg (80.0-90.0) L 12/31/21 14:39 ABG O2 Saturation 95.2 % (95.0-99.0) 12/31/21 14:39 PT/INR, D-dimer D-Dimer 397.42 ng/mlDDU (0-234) H 01/01/22 13:23 Abnormal lab findings: Abnormal Labs 12/31/21 12/31/21 12/31/21 14:14 14:14 14:39 MCH 26 L RDW 16.3 H Lymph % (Auto) 8.9 L [place] % (Auto) 8.0 H Lymph # (Auto) 0.8 L Seg Neutrophils % 78.9 H Seg Neuts % (Manual) Lymphocytes % (Manual) Seg Neutrophils # Man Lymphocytes # (Manual) D-Dimer ABG pH 7.330 L ABG pO2 78.1 L ABG HCO3 32.8 H ABG Base Excess 4.9 H Oxyhemoglobin 93.0 L Chloride 96.9 L Carbon Dioxide Glucose 114 H Alkaline Phosphatase 135 H Total Protein 01/01/22 01/01/22 01/01/22 05:35 05:35 13:23 MCH 27 L RDW 16.4 H Lymph % (Auto) [place] % (Auto) Lymph # (Auto) Seg Neutrophils % Seg Neuts % (Manual) 99.0 H Lymphocytes % (Manual) 1.0 L Seg Neutrophils # Man 9.5 H Lymphocytes # (Manual) 0.1 L D-Dimer 397.42 H ABG pH ABG pO2 ABG HCO3 ABG Base Excess Oxyhemoglobin Chloride 95.4 L Carbon Dioxide 32 H Glucose 167 H Alkaline Phosphatase 145 H Total Protein 9.[address] scan - chest: report reviewed, image reviewed Additional Studies: CTA CHEST WITH IV CONTRAST 01/04/22 INDICATION / CLINICAL INFORMATION: pulmonary embolism. Shortness of breath TECHNIQUE: Axial CT images were obtained through the chest after injection of 90 mL Omnipaque 350 IV contrast. 3 plane MIP and/or 3D reconstructions were produced. All CT scans at this location are performed using CT dose reduction for ALARA by means of automated exposure control. COMPARISON: Chest radiograph 12/31/2021, CT chest 01/29/2021 FINDINGS: PULMONARY ARTERIES: No pulmonary emboli. THORACIC AORTA: No significant abnormality. HEART: No significant abnormality. CORONARY ARTERIES: No significant calcification. PLEURA: No pleural effusion. No pneumothorax. LYMPH NODES: No significant adenopathy. LUNGS: There is reticulonodular interstitial disease throughout both lower lobes, slightly more prevalent throughout the right lower lobe. There is focal linear pulmonary opacity in the right lower lobe as well. Bilateral upper lobes and right middle lobe are grossly cl ear. The reticulonodular interstitial disease retrospectively was present on the 01/29/[address] exam, within the right lung, but has clearly increased in severity and is now present within the left lower lobe as well. ADDITIONAL FINDINGS: None. UPPER ABDOMEN: No acute findings. Hepatic steatosis, as noted on prior imaging exams. SKELETAL STRUCTURES: Moderate spondylitic changes are present throughout the mid and lower thoracic spine. No acute significant osseous abnormality noted. IMPRESSION: 1. No CT evidence for pulmonary embolism. 2. Prominent reticulonodular interstitial disease is present throughout both lower lobes. This has progressed since CT chest 01/29/2021. Additionally there is small area of focal consolidation within the right lower lobe as well. Differential diagnosis includes infectious versus inflammatory etiology.
[2022-01-04] MEDS: levoFLOXacin 750 MG TAB PO SCH (14:24)
[2022-01-04] MEDS: LISINOPRIL 40 MG TAB PO SCH (14:24)
[2022-01-04] MEDS: amLODIPine 10 MG TAB PO SCH (14:24)
[2022-01-04] MEDS: HEPARIN 5,000 UNIT/1 ML VIAL SUB-Q SCH ×2 (14:24→21:40)
[2022-01-04] MEDS: FAMOTIDINE 20 MG TAB PO SCH ×2 (14:24→21:39)
[2022-01-04] MEDS: MONTELUKAST 10 MG TAB PO SCH (21:39)
[2022-01-04] MEDS: hydrALAZINE 20 MG/1 ML INJ IV PRN (22:15)
[2022-01-05] MEDS: methylPREDNISolone Sod Succinate 125 MG/2 ML INJ IV SCH ×3 (05:37→22:12)
[2022-01-05] MEDS: hydrALAZINE 20 MG/1 ML INJ IV PRN (05:41)
--- NOTE | 2022-01-05 09:08 | Progress Note ---
Assessment and Plan 56-year-old female with a history of asthma and hyper tension comes in for severe wheezing shortness of breath for the last 24 hours. Patient uses her home nebulizer treatments but with no relief. In the emergency room patient was saturating around 86%. With 3 to 5 L of nasal cannula oxygen patient's saturations improved to 95%. Patient received nebulizer treatments. No fever or chills. Patient states that she has some relief and wanted to go home. Patient's wheezing was less compared to the time of admission. When the oxygen was removed she desaturated again to 86%. Patient convinced to stay in the hospital for more breathing treatments steroids and antibiotics. Patient has history of Hypertension,Asthma, Anemia. Patient has history of sleep apnea. Not using CPAP now. Patient has no history of smoking, alcohol or drug abuse. Works as [employer]. Patient has no known drug allergies. atient awake. Sitting up by the side of the bed. Patient is on High flow O2 10 litres via nasal canula and . O2 saturation running 100%. Decreased O2 to 5 litres and O2 saturation running 96%. Still Complaining shortness of breath even for slight exertion and also O2 saturation dropping even with slight exertion. ABGs on room air 01/05/22 reported PH 7.45 PCO2 52.5 , PO2 65,6 HCO3 36 O2 saturation 98% on room air. Recommend 6 minute walk test before discharge to assess home O2 requirements. Recommend place her on BIPAP 20/10, rate 16, FIO2 45% especially during sleep . Patient afebrile. No leukocytosis. Blood pressure 173/97, pulse 105, respirations 20. Chest xray done 12/31/21 reported Mild cardiomegaly and central pulmonary venous congestion but no evidence for CHF. Venous doppler studies of both legs 01/01/22 reported no sonographic evidence of DVT CTA of chest 01/04/[address] evidence for pulmonary embolism. Prominent reticulonodular interstitial disease is present throughout both lower lobes. This has progressed since CT chest 01/29/2021. Additionally there is small area of focal consolidation within the right lower lobe as well. Differential diagnosis includes infectious versus inflammatory etiology. JESSICA level results pending. Patient is on I/V solumedrol, Brovanna/Budesonide aerosol treatments , Albutrrol/atrovent aerosol treatments prn for shortness of breath, Levaquin, S/C Heparin, Famotidine. I spent critical care time of 35 minutes, obtaining history, review the chart, Examine the patient, review lab results, review chest xray, talking to nursing staff, respiratory therapy and work up plan of treatment in this critically ill patient with acute hypercapnic and hypoxic respiratory failure. - Patient Problems (1) Acute respiratory failure with hypoxia and hypercapnia Current Visit: No Status: Acute Plan to address problem: Patient is presently on High flow O2 10 litres. Decrease the O2 to 5 litres and keeping O2 saturation above 92%. Recommend BIPAP 20/10, rate 16, FIO2 45% especially during sleep Continue I/V solumedrol. Continue albuterol/atrovent aerosol treatments. Continue S/C Heparin Continue famotidine. Continue Levaquin. Recommend 6 minute walk test to assess home O2 requirements. (2) Asthma exacerbation Current Visit: No Status: Acute Qualifiers: Asthma severity: severe Plan to address problem: Patient is presently on High flow O2 10 litres. Decrease the O2 to 5 litres and keeping O2 saturation above 92%. Recommend BIPAP 20/10, rate 16, FIO2 45% especially during sleep Continue I/V solumedrol. Continue albuterol/atrovent aerosol treatments. Continue S/C Heparin Continue famotidine. Continue Levaquin. (3) Hypertension Current Visit: No Status: Chronic Qualifiers: Hypertension type: primary hypertension Qualified Code(s): I10 - Essential (primary) hypertension Plan to address problem: Management as per primary care. (4) Morbid obesity with BMI of 40.0-44.9, adult Current Visit: No Status: Acute Plan to address problem: Counseled to loose weight. Recommend dietary consultation for weight reduction diet. (5) Sleep apnea in adult Current Visit: No Status: Acute Plan to address problem: Recommend to place her on BIPAP 20/10, rate 16, FIO2 45% during night time. Recommend to loose weight. Maintain sleep hygiene. Recommend not to drive or operate heavy equipment with sleepiness. Avoid alcohol, sedatives and narcotics. (6) Morbid obesity with alveolar hypoventilation Current Visit: No Status: Acute Plan to address problem: BGs on room air 01/05/22 during day time reported PH 7.45 PCO2 52.5 , PO2 65,6 HCO3 36 O2 saturation 98% . BIPAP 20/10, rate 16, FIO2 35%. Recommend to loose weight. Maintain sleep hygiene. Recommend not to drive or operate heavy equipment with sleepiness. Avoid alcohol, sedatives and narcotics. Subjective Date of service: 01/05/22 Interval history: 56-year-old female with a history of asthma and hyper tension comes in for severe wheezing shortness of breath for the last 24 hours. Patient uses her home nebulizer treatments but with no relief. In the emergency room patient was saturating around 86%. With 3 to 5 L of nasal cannula oxygen patient's saturations improved to 95%. Patient received nebulizer treatments. No fever or chills. Patient states that she has some relief and wanted to go home. Patient's wheezing was less compared to the time of admission. When the oxygen was removed she desaturated again to 86%. Patient convinced to stay in the hospital for more breathing treatments steroids and antibiotics. Patient has history of Hypertension,Asthma, Anemia. Patient has history of sleep apnea. Not using CPAP now. Patient has no history of smoking, alcohol or drug abuse. Works as [employer]. Patient has no known drug allergies. Patient awake. Sitting up by the side of the bed. Patient is on High flow O2 10 litres via nasal canula and . O2 saturation running 100%. Decreased O2 to 5 litres and O2 saturation running 96%. Still Complaining shortness of breath even for slight exertion and also O2 saturation dropping even with slight exertion. ABGs on room air 01/05/22 reported PH 7.45 PCO2 52.5 , PO2 65,6 HCO3 36 O2 saturation 98% on room air. Recommend 6 minute walk test before discharge to assess home O2 requirements. Recommend place her on BIPAP 20/10, rate 16, FIO2 45% especially during sleep . Patient afebrile. No leukocytosis. Blood pressure 173/97, pulse 105, respirations 20. Chest xray done 12/31/21 reported Mild cardiomegaly and central pulmonary venous congestion but no evidence for CHF. Venous doppler studies of both legs 01/01/22 reported no sonographic evidence of DVT CTA of chest 01/04/[address] evidence for pulmonary embolism. Prominent reticulonodular interstitial disease is present throughout both lower lobes. This has progressed since CT chest 01/29/2021. Additionally there is small area of focal consolidation within the right lower lobe as well. Differential diagnosis includes infectious versus inflammatory etiology. JESSICA level results pending. Patient is on I/V solumedrol, Brovanna/Budesonide aerosol treatments , Albutrrol/atrovent aerosol treatments prn for shortness of breath, Levaquin, S/C Heparin, Famotidine. . Objective Vital Signs - 12hr 01/04/22 01/05/22 01/05/22 22:05 05:28 07:56 Temperature 97.8 F 98.4 F Pulse Rate 100 H 105 H Respiratory 16 20 18 Rate Blood Pressure 162/89 173/97 [Right] O2 Sat by Pulse 96 100 98 Oximetry Constitutional: no acute distress, alert, other (Appears tired.) Eyes: non-icteric ENT: oropharynx moist Neck: supple, no lymphadenopathy Effort: mildly labored Ascultation: Bilateral: diminished breath sounds (at the bases.), wheezes Cardiovascular: regular rate and rhythm Gastrointestinal: normoactive bowel sounds, soft, non-tender Integumentary: normal Extremities: no cyanosis, no edema Neurologic: normal mental status, non-focal exam, pupils equal and round, CN II- XII normal Psychiatric: mood appropriate, affect normal CBC and BMP: 01/01/22 05:35 01/01/22 05:35 ABG, PT/INR, D-dimer: ABG ABG pH 7.330 pH Units (7.350-7.450) L 12/31/21 14:39 ABG pCO2 63.7 mm Hg 12/31/21 14:39 ABG pO2 78.1 mm Hg (80.0-90.0) L 12/31/21 14:39 ABG O2 Saturation 95.2 % (95.0-99.0) 12/31/21 14:39 PT/INR, D-dimer D-Dimer 397.42 ng/mlDDU (0-234) H 01/01/22 13:23 Abnormal lab findings: Abnormal Labs 12/31/21 12/31/21 12/31/21 14:14 14:14 14:39 MCH 26 L RDW 16.3 H Lymph % (Auto) 8.9 L [place] % (Auto) 8.0 H Lymph # (Auto) 0.8 L Seg Neutrophils % 78.9 H Seg Neuts % (Manual) Lymphocytes % (Manual) Seg Neutrophils # Man Lymphocytes # (Manual) D-Dimer ABG pH 7.330 L ABG pO2 78.1 L ABG HCO3 32.8 H ABG Base Excess 4.9 H Oxyhemoglobin 93.0 L Chloride 96.9 L Carbon Dioxide Glucose 114 H Alkaline Phosphatase 135 H Total Protein 01/01/22 01/01/22 01/01/22 05:35 05:35 13:23 MCH 27 L RDW 16.4 H Lymph % (Auto) [place] % (Auto) Lymph # (Auto) Seg Neutrophils % Seg Neuts % (Manual) 99.0 H Lymphocytes % (Manual) 1.0 L Seg Neutrophils # Man 9.5 H Lymphocytes # (Manual) 0.1 L D-Dimer 397.42 H ABG pH ABG pO2 ABG HCO3 ABG Base Excess Oxyhemoglobin Chloride 95.4 L Carbon Dioxide 32 H Glucose 167 H Alkaline Phosphatase 145 H Total Protein 9.1 H
[2022-01-05] MEDS: BUDESONIDE 0.5 MG/2 ML NEBU IH SCH ×2 (09:36→19:00)
[2022-01-05] MEDS: ARFORMOTEROL 15 MCG/2 ML NEBU IH SCH ×2 (09:36→19:00)
[2022-01-05] MEDS: IPRATROPIUM/ALBUTEROL SULFATE 3 ML AMPUL.NEB IH SCH ×3 (09:36→19:00)
[2022-01-05] MEDS: LISINOPRIL 40 MG TAB PO SCH (10:30)
[2022-01-05] MEDS: FAMOTIDINE 20 MG TAB PO SCH ×2 (10:30→22:12)
[2022-01-05] MEDS: amLODIPine 10 MG TAB PO SCH (10:31)
[2022-01-05] MEDS: HEPARIN 5,000 UNIT/1 ML VIAL SUB-Q SCH ×2 (10:31→22:12)
[2022-01-05] MEDS: levoFLOXacin 750 MG TAB PO SCH (10:31)
[2022-01-05 11:11] LABS: ABG Base Excess 10.2 mmol/L (-2.0-3.0); ABG Methemoglobin 0.6 % (0.0-1.5); ABG Oxygen Saturation 94.8 % (95.0-99.0); ABG PCO2 52.5 mm Hg; ABG PH 7.454 pH Units (7.350-7.450); ABG PO2 65.6 mm Hg (80.0-90.0)
--- NOTE | 2022-01-05 11:21 | Discharge Summary ---
Providers - Providers Date of Admission: 12/31/21 22:19 Date of discharge: 01/05/22 Attending physician: LILIAN PALM MD 01/01/22 10:10 Consult to Physician [CONS] Routine Comment: Consulting Provider: PHILL UMANA Physician Instructions: Reason For Exam: asthma exacerbation 01/02/22 11:12 Physical Therapy Evaluation and Treat [CONS] Routine Comment: Reason For Exam: pulmonary rehab. 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 Patient uses her home nebulizer treatments but with no relief. In the emergency room patient was saturating around 86%. With 3 to 5 L of nasal cannula oxygen patient's saturations improved to 95%. Patient received nebulizer treatments. No fever or chills. During my examination patient states that she has some relief and wanted to go home. Patient's wheezing was less compared to the time of admission. When the oxygen was removed she desaturated again to 86%. Patient had to be convinced to stay in the hospital for more breathing treatments steroids and antibiotics. Son was at the bedside. Hospital Course: 01/01: Pulmonary consultation placed, discussed case with Dr. Lloyd. D- dimer/LE doppler US ordered to R/o DVT/PE. Continue therapy outlined below for asthma exacerbation. anticipate d/c in next 24-48 hrs if patient demonstrates improvement. 01/02: Appears fatigued. Ordered PT for pulmonary rehabilitation as well as home O2 evaluation. Currently requiring 10l/min on salter nc. suspect pt is tachycardic due to albuterol. albuterol d/c, started on levalbuterol. continue steroids, inhaler therapy. Will follow pulmonary recommendations. 01/03: Continued shortness of breath. on 10l/min salter this AM. will follow pulmonary recommendations. will attempt to d/c tomorrow if sympomology improved. will likely need home o2. cm consultation placed for home o2. will follow pt recommendations. 01/04: BIPAP qhs per pulmonary recommendations. Awaiting PT recommendations. Will work to aggressively lower O2 requirement. Currently on salter 10 l/min. CTA chest pending, R/o PE. 01/05: Stable for discharge. O2 now on nasal cannula 4-5 L/min. Working on home O2 set up. Plan for discharge today. Will send rx for: Amlodipine, lisinopril, Decadron taper, albuterol, Spiriva, Symbicort. Medications E scribed to [facility]. Patient advised to follow-up outpatient with Dr. Montserrat CHAVEZ. Assessment and Plan: #Acute hypoxic respiratory failure #Asthma Exacerbation -Desaturated to 86% on room air in the emergency department. Currenlty on salter 10l/min - BIPAP qhs -D-dimer and Doppler ultrasound of lower extremity pending Chest x-ray: Mild cardiomegaly and central pulmonary venous congestion but no evidence of CHF DuoNeb, budesonide, Brovana Montelukast Solu-Medrol IV -Currently on Levaquin, doubt infectious etiology. can likely d/c tomorrow. Pulmonary consultation - CT Chest order, R/O PE. #Essential hypertension - Amlodipine 10 - lisinopril 40 po qdaily -As needed hydralazine #Hyperglycemia -Sliding scale insulin Hemoglobin A1c ordered Worsened by steroid likely #Morbid Obesity + 15 min preventative health counseling on for balanced diet /regular exercise. #Advance care planning Disease education conducted, care plan discussed, diagnoses discussed, prognosis discussed, patient is full code, patient acknowledges understanding and agree with care plan, +30 minutes. Disposition: 06 HOME HEALTH CARE SERVICE Final Discharge Diagnosis (Prints w/discharge instructions): asthma exacerbation Time spent for discharge: 35 Core Measure Documentation - Palliative Care Palliative Care/ Comfort Measures: Not Applicable - Core Measures Any of the following diagnoses?: none Exam - Constitutional Vitals: Temp Pulse Resp BP Pulse Ox 98.4 F 110 H 20 128/73 98 01/05/22 05:28 01/05/22 10:30 01/05/22 09:37 01/05/22 10:30 01/05/22 09:40 Plan Follow up with: AVERY LAMBERT MD [Primary Care Provider] - 3-5 Days ROSARIO BLANKENSHIP MD [Staff Physician] - 7 Days Prescriptions: amLODIPine 10 mg PO QDAY 30 Days #30 tablet Dexamethasone [Decadron] 6 mg PO DAILY 9 Days #29 tab Albuterol Mdi (or & Nicu Only) [ProAir HFA Inhaler] 2 puff IH QID PRN 30 Days #1 pump PRN Reason: Shortness Of Breath Tiotropium [Spiriva] 18 mcg IH QDAY 30 Days #1 box Budesonide/Formoterol Fumarate [Symbicort 160-4.5 Mcg Inhaler] 10.2 gm IH DAILY 30 Days #1 pump lisinopriL [Zestril TAB] 40 mg PO QDAY 30 Days #30 tablet
[2022-01-05] MEDS: MONTELUKAST 10 MG TAB PO SCH (22:12)
[2022-01-06] MEDS: hydrALAZINE 20 MG/1 ML INJ IV PRN (00:11)
[2022-01-06] MEDS: methylPREDNISolone Sod Succinate 125 MG/2 ML INJ IV SCH ×2 (05:23→15:07)
[2022-01-06] MEDS: IPRATROPIUM/ALBUTEROL SULFATE 3 ML AMPUL.NEB IH SCH ×2 (08:20→13:49)
[2022-01-06] MEDS: ARFORMOTEROL 15 MCG/2 ML NEBU IH SCH (08:26)
[2022-01-06] MEDS: BUDESONIDE 0.5 MG/2 ML NEBU IH SCH (08:26)
--- NOTE | 2022-01-06 11:07 | Progress Note ---
Assessment and Plan Assessment and plan: 56-year-old female with a history of asthma and hyper tension comes in for severe wheezing shortness of breath for the last 24 hours. Patient uses her home nebulizer treatments but with no relief. In the emergency room patient was saturating around 86%. With 3 to 5 L of nasal cannula oxygen patient's saturations improved to 95%. Patient received nebulizer treatments. No fever or chills. During my examination patient states that she has some relief and wanted to go home. Patient's wheezing was less compared to the time of admission. When the oxygen was removed she desaturated again to 86%. Patient had to be convinced to stay in the hospital for more breathing treatments steroids and antibiotics. Son was at the bedside. Acute hypoxic respiratory failure Asthma Exacerbation -Desaturated to 86% on room air in the emergency department. Currenlty on salter 10l/min - BIPAP qhs -D-dimer and Doppler ultrasound of lower extremity pending Chest x-ray: Mild cardiomegaly and central pulmonary venous congestion but no evidence of CHF DuoNeb, budesonide, Brovana Montelukast Solu-Medrol IV -Currently on Levaquin, doubt infectious etiology. can likely d/c tomorrow. Pulmonary consultation - CT Chest order, R/O PE. Essential hypertension - Amlodipine 10 - lisinopril 40 po qdaily -As needed hydralazine Hyperglycemia -Sliding scale insulin Hemoglobin A1c ordered Worsened by steroid likely Morbid Obesity + 15 min preventative health counseling on for balanced diet /regular exercise. Hospital Course: 01/01: Pulmonary consultation placed, discussed case with Dr. Lloyd. D- dimer/LE doppler US ordered to R/o DVT/PE. Continue therapy outlined below for asthma exacerbation. anticipate d/c in next 24-48 hrs if patient demonstrates improvement. 01/02: Appears fatigued. Ordered PT for pulmonary rehabilitation as well as home O2 evaluation. Currently requiring 10l/min on salter nc. suspect pt is tachycardic due to albuterol. albuterol d/c, started on levalbuterol. continue steroids, inhaler therapy. Will follow pulmonary recommendations. 01/03: Continued shortness of breath. on 10l/min salter this AM. will follow pulmonary recommendations. will attempt to d/c tomorrow if sympomology improved. will likely need home o2. cm consultation placed for home o2. will follow pt recommendations. 01/04: BIPAP qhs per pulmonary recommendations. Awaiting PT recommendations. Will work to aggressively lower O2 requirement. Currently on salter 10 l/min. CTA chest pending, R/o PE. 01/05: Stable for discharge. O2 now on nasal cannula 4-5 L/min. Working on home O2 set up. Plan for discharge today. Will send rx for: Amlodipine, lisinopril, Decadron taper, albuterol, Spiriva, Symbicort. Medications E scribed to [facility]. Patient advised to follow-up outpatient with Dr. Montserrat CHAVEZ. 01/06: Patient was planned for discharge yesterday but awaiting for home O2 set up. Patient will likely discharge today. History Interval history: No new issues overnight Hospitalist Physical - Constitutional Vitals: Temp Pulse Resp BP Pulse Ox 98.0 F 115 H 16 141/102 95 01/06/22 04:50 01/06/22 08:26 01/06/22 08:26 01/06/22 04:50 01/06/22 08:24 General appearance: Present: severe distress, well-nourished - EENT Eyes: Present: PERRL, EOM intact ENT: hearing intact, clear oral mucosa, dentition normal - Neck Neck: Present: supple, normal ROM - Respiratory Respiratory effort: normal Respiratory: bilateral: CTA - Cardiovascular Rhythm: regular Heart Sounds: Present: S1 & S2. Absent: gallop, rub - Extremities Extremities: no ischemia, No edema, Full ROM - Abdominal General gastrointestinal: soft, non-tender, non-distended, normal bowel sounds - Integumentary Integumentary: Present: clear, warm, dry - Neurologic Neurologic: CNII-XII intact, moves all extremities HEART Score - HEART Score Troponin: Troponin T < 0.010 ng/mL (0.00-0.029) 12/31/21 14:14 Results - Labs CBC & Chem 7: 01/01/22 05:35 01/01/22 05:35 Labs: Laboratory Last Values WBC 9.6 K/mm3 (4.5-11.0) 01/01/22 05:35 RBC 4.98 M/mm3 (3.65-5.03) 01/01/22 05:35 Hgb 13.3 gm/dl (10.1-14.3) 01/01/22 05:35 Hct 42.5 % (30.3-42.9) 01/01/22 05:35 MCV 85 fl (79-97) 01/01/22 05:35 MCH 27 pg (28-32) L 01/01/22 05:35 MCHC 31 % (30-34) 01/01/22 05:35 RDW 16.4 % (13.2-15.2) H 01/01/22 05:35 Plt Count 293 K/mm3 (140-440) 01/01/22 05:35 Lymph % (Auto) 8.9 % (13.4-35.0) L 12/31/21 14:14 [place] % (Auto) 8.0 % (0.0-7.3) H 12/31/21 14:14 Eos % (Auto) 3.3 % (0.0-4.3) 12/31/21 14:14 Baso % (Auto) 0.9 % (0.0-1.8) 12/31/21 14:14 Lymph # (Auto) 0.8 K/mm3 (1.2-5.4) L 12/31/21 14:14 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 01/01/22 05:35 Seg Neuts % (Manual) 99.0 % (40.0-70.0) H 01/01/22 05:35 Band Neutrophils % 0 % 01/01/22 05:35 Lymphocytes % (Manual) 1.0 % (13.4-35.0) L 01/01/22 05:35 Reactive Lymphs % (Man) 0 % 01/01/22 05:35 Monocytes % (Manual) 0 % (0.0-7.3) 01/01/22 05:35 Eosinophils % (Manual) 0 % (0.0-4.3) 01/01/22 05:35 Basophils % (Manual) 0 % (0.0-1.8) 01/01/22 05:35 Metamyelocytes % 0 % 01/01/22 05:35 Myelocytes % 0 % 01/01/22 05:35 Promyelocytes % 0 % 01/01/22 05:35 Blast Cells % 0 % 01/01/22 05:35 Nucleated RBC % Not Reportable 01/01/22 05:35 Seg Neutrophils # 7.2 K/mm3 (1.8-7.7) 12/31/21 14:14 Seg Neutrophils # Man 9.5 K/mm3 (1.8-7.7) H 01/01/22 05:35 Band Neutrophils # 0.0 K/mm3 01/01/22 05:35 Lymphocytes # (Manual) 0.1 K/mm3 (1.2-5.4) L 01/01/22 05:35 Abs React Lymphs (Man) 0.0 K/mm3 01/01/22 05:35 Monocytes # (Manual) 0.0 K/mm3 (0.0-0.8) 01/01/22 05:35 Eosinophils # (Manual) 0.0 K/mm3 (0.0-0.4) 01/01/22 05:35 Basophils # (Manual) 0.0 K/mm3 (0.0-0.1) 01/01/22 05:35 Metamyelocytes # 0.0 K/mm3 01/01/22 05:35 Myelocytes # 0.0 K/mm3 01/01/22 05:35 Promyelocytes # 0.0 K/mm3 01/01/22 05:35 Blast Cells # 0.0 K/mm3 01/01/22 05:35 WBC Morphology Not Reportable 01/01/22 05:35 Hypersegmented Neuts Not Reportable 01/01/22 05:35 Hyposegmented Neuts Not Reportable 01/01/22 05:35 Hypogranular Neuts Not Reportable 01/01/22 05:35 Smudge Cells Not Reportable 01/01/22 05:35 Toxic Granulation Not Reportable 01/01/22 05:35 Toxic Vacuolation Not Reportable 01/01/22 05:35 Dohle Bodies Not Reportable 01/01/22 05:35 Pelger-Huet Anomaly Not Reportable 01/01/22 05:35 Gianfranco Rods Not Reportable 01/01/22 05:35 Platelet Estimate Consistent w auto 01/01/22 05:35 Clumped Platelets Not Reportable 01/01/22 05:35 Plt Clumps, EDTA Not Reportable 01/01/22 05:35 Large Platelets Not Reportable 01/01/22 05:35 Giant Platelets Not Reportable 01/01/22 05:35 Platelet Satelliting Not Reportable 01/01/22 05:35 Plt Morphology Comment Not Reportable 01/01/22 05:35 RBC Morphology Normal 01/01/22 05:35 Dimorphic RBCs Not Reportable 01/01/22 05:35 Polychromasia Not Reportable 01/01/22 05:35 Hypochromasia Not Reportable 01/01/22 05:35 Poikilocytosis Not Reportable 01/01/22 05:35 Anisocytosis Not Reportable 01/01/22 05:35 Microcytosis Not Reportable 01/01/22 05:35 Macrocytosis Not Reportable 01/01/22 05:35 Spherocytes Not Reportable 01/01/22 05:35 Pappenheimer Bodies Not Reportable 01/01/22 05:35 Sickle Cells Not Reportable 01/01/22 05:35 Target Cells Not Reportable 01/01/22 05:35 Tear Drop Cells Not Reportable 01/01/22 05:35 Ovalocytes Not Reportable 01/01/22 05:35 Helmet Cells Not Reportable 01/01/22 05:35 [place] Bodies Not Reportable 01/01/22 05:35 [place] Rings Not Reportable 01/01/22 05:35 Efren Cells Not Reportable 01/01/22 05:35 Bite Cells Not Reportable 01/01/22 05:35 Crenated Cell Not Reportable 01/01/22 05:35 Elliptocytes Not Reportable 01/01/22 05:35 Acanthocytes (Spur) Not Reportable 01/01/22 05:35 Rouleaux Not Reportable 01/01/22 05:35 Hemoglobin C Crystals Not Reportable 01/01/22 05:35 Schistocytes Not Reportable 01/01/22 05:35 Malaria parasites Not Reportable 01/01/22 05:35 Zan Bodies Not Reportable 01/01/22 05:35 Hem Pathologist Commnt No 01/01/22 05:35 D-Dimer 397.42 ng/mlDDU (0-234) H 01/01/22 13:23 ABG pH 7.454 pH Units (7.350-7.450) H 01/05/22 10:55 ABG pCO2 52.5 mm Hg 01/05/22 10:55 ABG pO2 65.6 mm Hg (80.0-90.0) L 01/05/22 10:55 ABG HCO3 36.0 mmol/L (20.0-26.0) H 01/05/22 10:55 ABG O2 Saturation 94.8 % (95.0-99.0) L 01/05/22 10:55 ABG O2 Content 18.2 (0.0-44) 01/05/22 10:55 ABG Base Excess 10.2 mmol/L (-2.0-3.0) H 01/05/22 10:55 ABG Hemoglobin 13.9 gm/dl (12.0-16.0) 01/05/22 10:55 ABG Carboxyhemoglobin 1.1 % (0.0-5.0) 01/05/22 10:55 ABG Methemoglobin 0.6 % (0.0-1.5) 01/05/22 10:55 Oxyhemoglobin 93.3 % (95.0-99.0) L 01/05/22 10:55 FiO2 21 % 01/05/22 10:55 Sodium 139 mmol/L (137-145) 01/01/22 05:35 Potassium 4.6 mmol/L (3.6-5.0) 01/01/22 05:35 Chloride 95.4 mmol/L (98-107) L 01/01/22 05:35 Carbon Dioxide 32 mmol/L (22-30) H 01/01/22 05:35 Anion Gap 16 mmol/L 01/01/22 05:35 BUN 12 mg/dL (7-17) 01/01/22 05:35 Creatinine 0.6 mg/dL (0.6-1.2) 01/01/22 05:35 Estimated GFR > 60 ml/min 01/01/22 05:35 BUN/Creatinine Ratio 20 % 01/01/22 05:35 Glucose 167 mg/dL (65-100) H 01/01/22 05:35 Calcium 9.8 mg/dL (8.4-10.2) 01/01/22 05:35 Total Bilirubin 0.60 mg/dL (0.1-1.2) 01/01/22 05:35 AST 14 units/L (5-40) 01/01/22 05:35 ALT 15 units/L (7-56) 01/01/22 05:35 Alkaline Phosphatase 145 units/L (35-129) H 01/01/22 05:35 Troponin T < 0.010 ng/mL (0.00-0.029) 12/31/21 14:14 NT-Pro-B Natriuret Pep 79.88 pg/mL (0-900) 12/31/21 14:14 Total Protein 9.1 g/dL (6.3-8.2) H 01/01/22 05:35 Albumin 4.3 g/dL (3.9-5) 01/01/22 05:35 Albumin/Globulin Ratio 0.9 % 01/01/22 05:35 Torrez/IV: Voiding Method Toilet Active Medications - Current Medications Current Medications: Generic Name Dose Route Start Last Admin Trade Name Freq PRN Reason Stop Dose Admin Acetaminophen 650 mg 12/31/21 23:30 Acetaminophen 325 Mg Tab PO Q4H PRN Pain MILD(1-3)/Fever >100.5/WEBB Albuterol 2.5 mg 01/03/22 10:00 Albuterol 2.5 Mg/3 Ml Nebu IH Q4HRT PRN Shortness Of Breath Albuterol/Ipratropium 1 ampul 01/03/22 14:00 01/06/22 08:20 Ipratropium/Albuterol Sulfate 3 Ml Ampul.Neb IH 1 ampul TIDRT MARIAH Administration Amlodipine Besylate 10 mg 01/01/22 19:00 01/05/22 10:31 Amlodipine 10 Mg Tab PO 10 mg QDAY MARIAH Administration Arformoterol Tartrate 15 mcg 01/03/22 20:00 01/06/22 08:26 Arformoterol 15 Mcg/2 Ml Nebu IH 15 mcg Q12HRT MARIAH Administration Budesonide 0.5 mg 01/03/22 20:00 01/06/22 08:26 Budesonide 0.5 Mg/2 Ml Nebu IH 0.5 mg Q12HRT MARIAH Administration Famotidine 20 mg 01/01/22 10:00 01/05/22 22:12 Famotidine 20 Mg Tab PO 20 mg BID MARIAH Administration Heparin Sodium (Porcine) 5,000 unit 01/01/22 10:00 01/05/22 22:12 Heparin 5,000 Unit/1 Ml Vial SUB-Q 5,000 unit Q12HR MARIAH Administration Hydralazine HCl 10 mg 01/01/22 18:52 01/06/22 00:11 Hydralazine 20 Mg/1 Ml Inj IV 10 mg Q4H PRN Administration Blood Pressure Hydromorphone HCl 0.5 mg 12/31/21 22:19 01/01/22 00:07 Hydromorphone 0.5 Mg/0.5 Ml Inj IV 0.5 mg Q3H PRN Administration Pain , Severe (7-10) Lisinopril 40 mg 01/01/22 19:00 01/05/22 10:30 Lisinopril 40 Mg Tab PO 40 mg QDAY MARIAH Administration Methylprednisolone Sodium Succinate 60 mg 12/31/21 23:30 01/06/22 05:23 Methylprednisolone Sod Succinate 125 Mg/2 Ml Inj IV 60 mg Q8HR MARIAH Administration Metoclopramide HCl 10 mg 12/31/21 23:30 Metoclopramide 10 Mg/2 Ml Inj IV Q6H PRN Nausea And Vomiting Montelukast Sodium 10 mg 01/01/22 22:00 01/05/22 22:12 Montelukast 10 Mg Tab PO 10 mg QHS MARIAH Administration Ondansetron HCl 4 mg 12/31/21 23:30 01/01/22 00:08 Ondansetron 4 Mg/2 Ml Inj IV 4 mg Q8H PRN Administration Nausea And Vomiting Oxycodone/Acetaminophen 1 tab 12/31/21 23:30 01/02/22 21:51 Oxycodone /Acetaminophen 5-325mg Tab PO 1 tab Q6H PRN Administration Pain, Moderate (4-6) Sodium Chloride 10 ml 01/01/22 10:00 01/05/22 22:12 Sodium Chloride 0.9% 10 Ml Flush Syringe IV 10 ml BID MARIAH Administration Sodium Chloride 10 ml 12/31/21 22:19 01/01/22 05:26 Sodium Chloride 0.9% 10 Ml Flush Syringe IV 10 ml PRN PRN Administration LINE FLUSH
[2022-01-06] MEDS: HEPARIN 5,000 UNIT/1 ML VIAL SUB-Q SCH (11:21)
[2022-01-06] MEDS: FAMOTIDINE 20 MG TAB PO SCH (11:22)
[2022-01-06] MEDS: amLODIPine 10 MG TAB PO SCH (11:36)
[2022-01-06] MEDS: LISINOPRIL 40 MG TAB PO SCH (11:36)
[2022-01-06 11:50] VITALS: BP 165/103
== END 2022-01-06 17:00 | disposition home health service (06) | DRG 193 ==
LOC: ED 13:22 → 3A 22:19 → UNDODISIN 01-03 13:32
PROVIDERS: ADMIT Internal Medicine; ATTEND Hospitalist
PROC: 4A033R1 Measurement of Arterial Saturation, Peripheral, Percutaneous Approach (ICD-10-PCS; principal; 2021-12-31)
PROC: 5A09357 Assistance with Respiratory Ventilation, Less than 24 Consecutive Hours, Continuous Positive Airway Pressure (ICD-10-PCS; 2022-01-03)
DX: J18.9 Pneumonia, unspecified organism (principal); J96.01 Acute respiratory failure with hypoxia; J96.02 Acute respiratory failure with hypercapnia; J45.901 Unspecified asthma with (acute) exacerbation; J44.1 Chronic obstructive pulmonary disease with (acute) exacerbation; E66.2 Morbid (severe) obesity with alveolar hypoventilation; J44.0 Chronic obstructive pulmonary disease with (acute) lower respiratory infection; Z68.41 Body mass index [BMI] 40.0-44.9, adult; I10 Essential (primary) hypertension; I16.0 Hypertensive urgency; R73.9 Hyperglycemia, unspecified
CPT/HCPCS: 36415; 36600; 71045; 71275; 80053; 82164; 82803; 83880; 84484; 85007; 85025; 85379; 93005; 93970; 94640; 94644; 94660; 94760; G0378; J0360; J1644; J1956; J2405; J2930; J7030; Q9967